=== PATIENT | male | born 2005 | race Caucasian/White ===

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

== ENCOUNTER 2023-12-07 01:00 | Inpatient (IN) | payer OTHER ==
[~2023-12-07 01:00] MED LIST: GLYCOPYRROLATE 0.2 MG/ML 2 ML VIAL ONE; HYDROmorphone (PF) 1 MG/ML ONE; KETOROLAC 15 MG/ML 1 ML VIAL ONE; LIDOCAINE 1% INJ 10MG/ML (20 ML MDV) ONE; MIDAZOLAM 2 MG/2 ML VIAL ONE; MORPHINE SULFATE 2 MG/ML SYRINGE ONE; MORPHINE SULFATE 4 MG/ML SYRINGE ONE; NEOSTIGMINE 1 MG/ML 10 ML VIAL ONE; PROPOFOL 10 MG/ML 20 ML VIAL IV ONE; ROCURONIUM 10 MG/ML (5 ML VIAL) IV ONE; SUCCINYLCHOLINE CHLORIDE 200 MG/10 ML VIAL IV ONE; fentaNYL (PF) 50 MCG/ML 2 ML AMP ONE
[2023-12-07] MEDS ORDERED: PIPERACILLIN-TAZOBACTAM 3.375 GM VIAL ONE ×3 (01:42→20:06)
[2023-12-07] MEDS ORDERED: HYDROmorphone 1 MG/ML 1 ML SYRINGE ONE (01:54)
[2023-12-07] MEDS ORDERED: ONDANSETRON 4 MG/2 ML VIAL ONE (08:00)
[2023-12-07] MEDS ORDERED: DEXAMETHASONE SOD PHOSPHATE 4 MG/ML 1 ML VIAL ONE (08:00)
[2023-12-07] MEDS ORDERED: HEPARIN SODIUM,PORCINE 5,000 UNIT/ML 1 ML VIAL ONE ×2 (09:03→20:06)
[2023-12-07] MEDS ORDERED: LACTATED RINGERS 1,000 ML BAG ONE (09:34)
[2023-12-07] MEDS ORDERED: LIDOCAINE 1%-EPI 1:100,000 20 ML VIAL ONE (09:34)
[2023-12-07] MEDS ORDERED: ACETAMINOPHEN TAB 325 MG TAB ONE (14:17)
[2023-12-07] MEDS ORDERED: HYDROcodone/APAP 5-325MG 1 EACH TAB ONE (20:57)
[2023-12-07] MEDS ORDERED: SODIUM CHLORIDE 0.9% 100 ML BAG IV ONE (23:59)
[2023-12-07] MEDS ORDERED: SODIUM CHLORIDE 0.9% 1,000 ML BAG ONE (23:59)
[2023-12-08] MEDS ORDERED: PIPERACILLIN-TAZOBACTAM 3.375 GM VIAL ONE ×2 (04:33→19:59)
[2023-12-08] MEDS ORDERED: HYDROcodone/APAP 5-325MG 1 EACH TAB ONE ×2 (08:53→16:14)
[2023-12-08] MEDS ORDERED: HEPARIN SODIUM,PORCINE 5,000 UNIT/ML 1 ML VIAL ONE ×2 (08:55→19:59)
[2023-12-08] MEDS ORDERED: ACETAMINOPHEN TAB 325 MG TAB ONE (19:59)
[2023-12-08] MEDS ORDERED: SODIUM CHLORIDE 0.9% 100 ML BAG IV ONE (23:59)
[2023-12-08] MEDS ORDERED: LEVOFLOXACIN 500MG-D5W PMX 500 MG/100 ML BAG IVPB ONE (23:59)
[2023-12-08] MEDS ORDERED: MELATONIN 3 MG TABLET ONE (23:59)
[2023-12-09] MEDS ORDERED: PIPERACILLIN-TAZOBACTAM 3.375 GM VIAL ONE (05:33)
[2023-12-09] MEDS ORDERED: HEPARIN SODIUM,PORCINE 5,000 UNIT/ML 1 ML VIAL ONE (08:13)
--- NOTE | 2024-01-06 15:37 | DS ---
DISCHARGE SUMMARY ADMITTING DIAGNOSIS: Appendicitis. DISCHARGE DIAGNOSIS: Appendicitis. COURSE IN THE HOSPITAL: This is a male, who was admitted through the emergency room with complaints of right lower quadrant pain. The patient was found to have acute appendicitis. The patient underwent laparoscopic appendectomy. His postoperative stay was unremarkable. The patient was discharged to home on 12/09/2023. He will follow up in the office in 1 week. MMANOOP / NICOLEN: [id number] /
--- NOTE | 2024-01-15 18:38 | CT ---
EXAM: CT Abdomen and Pelvis With Intravenous Contrast CLINICAL HISTORY: abdominal/epigastric pain. TECHNIQUE: Axial computed tomography images of the abdomen and pelvis with intravenous contrast. CTDI is 12.2 mGy and DLP is 623 mGy-cm. This CT exam was performed using one or more of the following dose reduction techniques: automated exposure control, adjustment of the mA and/or kV according to patient size, and/or use of iterative reconstruction technique. COMPARISON: No relevant prior studies available. FINDINGS: Lung bases:Unremarkable. No mass. No consolidation. ABDOMEN: Liver:Unremarkable. No mass. Gallbladder and bile ducts:Unremarkable. No calcified stones. No ductal dilation. Pancreas:Unremarkable. No mass. No ductal dilation. Spleen:Unremarkable. No splenomegaly. Adrenals:Unremarkable. No mass. Kidneys and ureters:Unremarkable. No solid mass. No hydronephrosis. Stomach and bowel:Unremarkable. No obstruction. No mucosal thickening. PELVIS: Appendix: Positive for appendicitis, consisting of a distended appendix measuring 14 mmwith moderate wall thickening. Moderate surrounding inflammation. No perforation or abscess. Bladder:Unremarkable. No mass. Reproductive:Unremarkable as visualized. ABDOMEN and PELVIS: Intraperitoneal space:Unremarkable. No free air. No significant fluid collection. Bones/joints:No acute fracture. No dislocation. Soft tissues:Unremarkable. Vasculature:Unremarkable. No abdominal aortic aneurysm. Lymph nodes:Unremarkable. No enlarged lymph nodes. IMPRESSION: Positive for appendicitis, consisting of a distended appendix measuring 14 mmwith moderate wall thickening. Moderate surrounding inflammation. No perforation or abscess. Radiologist: Marcellus Gonzalez MD Electronically Signed: 12/07/23 00:48 Study ready at 22:37 and initial results transmitted at 00:48 [facility]
--- NOTE | 2024-01-20 14:39 | OP ---
OPERATIVE REPORT DATE OF SERVICE : 12/07/2023 PREOPERATIVE DIAGNOSIS: Appendicitis. POSTOPERATIVE DIAGNOSIS: Appendicitis. GROCERY STORE CLERK: None. ANESTHESIA: General endotracheal anesthesia. DESCRIPTION OF PROCEDURE: The patient was placed on the operating table in the supine position. He received general anesthesia. His abdomen was prepped and draped in usual sterile fashion. The skin was incised at the umbilicus. Then, using a Estelle clamp, the fascia was grasped and then the Veress needle was positioned into the peritoneal cavity using a positive drop test. After adequate insufflation, a 5 mm trocar was placed into the peritoneal cavity and then the laparoscope was placed in the peritoneal cavity. There was inflammatory changes seen in the right lower quadrant. A 5 mm suprapubic trocar was placed and a 10 mm midline epigastric trocar was placed. The appendix was then dissected. The mesoappendix and then dissected using the Harmonic scissors. Then, the Endoloop was placed around the base of the appendix. The appendectomy was then performed by dividing the appendix with Harmonic scissors. The appendix was then placed into an EndoCatch and brought out through the 10 mm trocar site. The abdomen was irrigated. There was no bleeding seen. The scope was withdrawn. The skin was closed with interrupted 3-0 Monocryl suture. Dermabond dressing applied. The patient tolerated the procedure well. He was sent to recovery room in stable condition. MMODL / IJN: [id number] /
== END 2023-12-09 14:33 | disposition home or self-care (01) | DRG 234 ==
LOC: 6NMEDSUR 01:00
PROVIDERS: ADMIT Surgery; ATTEND Surgery
PROC: 0DTJ4ZZ Resection of Appendix, Percutaneous Endoscopic Approach (ICD-10-PCS; principal; 2023-12-06 09:50)
DX: K35.80 Unspecified acute appendicitis (principal); Z87.891 Personal history of nicotine dependence
CPT/HCPCS: 74177; 87040; 88304; 96374; 96375; 99285

== ENCOUNTER 2024-06-23 20:39 | Emergency (ER) | payer OTHER ==
--- NOTE | 2024-06-23 21:23 | ED ---
Extremity Problem HPI - General Chief complaint: Extremity Problem,Nontraumatic Stated complaint: L Arm Pain Time Seen by Provider: 06/23/24 20:54 Source: patient, RN notes reviewed Mode of arrival: ambulatory Limitations: no limitations - History of Present Illness Initial comments: This is a 18-year-old male presenting with left arm pain and swelling following placement donation several hours ago. Patient states this was his second time donating plasma when he suffered a syncopal episode in the middle of the process. States he has been having left upper arm swelling, pain and minor forearm paresthesia since that time with no ongoing dizziness/lightheadedness. Denies fever, chills, chest pain, dyspnea, extremity weakness, external bleeding.. Denies cardiac history, syncopal episodes with needle exposure, use of blood thinners. MD Complaint: extremity pain, extremity swelling Onset/Timin -: hour(s) Location: left, upper extremity History of Same: No Consistency: constant Improves with: immobilization, elevation Worsens with: palpation Associated Symptoms: denies other symptoms - Related Data Home Medications Medication Instructions Recorded Confirmed Minocycline [Minocin] 50 mg PO DAILY 07/05/21 07/05/21 Multivitamins, Thera [Multivitamin 1 tab PO DAILY 07/05/21 07/05/21 (formulary)] Allergies Allergy/AdvReac Type Severity Reaction Status Date / Time No Known Allergies Allergy Verified 06/23/24 20:43 Review of Systems ROS Statement: Those systems with pertinent positive or pertinent negative responses have been documented in the HPI. ROS Other: All systems not noted in ROS Statement are negative. Past Medical History Past Medical History: No Reported History Additional Past Medical History / Comment(s): adhd and a mood disorder per mom, sleep disorder History of Any Multi-Drug Resistant Organisms: None Reported Past Surgical History: No Surgical Hx Reported Past Psychological History: ADD/ADHD, Anxiety Smoking Status: Vaper Past Alcohol Use History: None Reported Past Drug Use History: Marijuana General Exam Limitations: no limitations General appearance: alert, in no apparent distress Head exam: Present: atraumatic, normocephalic, normal inspection Eye exam: Present: normal appearance, PERRL, EOMI. Absent: scleral icterus, conjunctival injection, periorbital swelling ENT exam: Present: normal exam, mucous membranes moist Neck exam: Present: normal inspection. Absent: tenderness, meningismus, lymphadenopathy Respiratory exam: Present: normal lung sounds bilaterally. Absent: respiratory distress, wheezes, rales, rhonchi, stridor Cardiovascular Exam: Present: regular rate, normal rhythm, normal heart sounds. Absent: systolic murmur, diastolic murmur, rubs, gallop, clicks GI/Abdominal exam: Present: soft, normal bowel sounds. Absent: distended, tenderness, guarding, rebound, rigid Extremities exam: Present: full ROM, tenderness (Positive left distal bicep edema and tenderness without ecchymosis, erythema - possible images hematoma), normal capillary refill, other (Distal left upper extremity neurovascular and motor function intact. Radial pulse +2, capillary refill less than 2 seconds). Absent: pedal edema, joint swelling, calf tenderness Back exam: Present: normal inspection Neurological exam: Present: alert, oriented X3, CN II-XII intact Psychiatric exam: Present: normal affect, normal mood Skin exam: Present: warm, dry, intact, normal color. Absent: rash Course Vital Signs 06/23/24 20:41 Temperature 97.7 F Pulse Rate 78 Respiratory 18 Rate Blood Pressure 124/82 O2 Sat by Pulse 100 Oximetry Medical Decision Making - Medical Decision Making Was pt. sent in by a medical professional or institution (, PA, TAPE LIBRARIAN, urgent care, hospital, or alf...) When possible be specific @ -[No] Did you speak to anyone other than the patient for history (EMS, parent, family, police, friend...)? What history was obtained from this source @ -[No] Did you review nursing and triage notes (agree or disagree)? Why? @ -[I reviewed and agree with nursing and triage notes] Were old charts reviewed (outside hosp., previous admission, EMS record, old EKG, old radiological studies, urgent care reports/EKG's, alf records)? Report findings @ -[No old charts were reviewed] Differential Diagnosis (chest pain, altered mental status, abdominal pain women, abdominal pain men, vaginal bleeding, weakness, fever, dyspnea, syncope, headache, dizziness, GI bleed, back pain, seizure, CVA, palpatations, mental health, musculoskeletal)? @ -Differential Musculoskeletal Muscular strain, contusion, ligament sprain, fracture, arthritis, septic arthritis, bursitis, cellulitis, muscle spasm, nerve compression, DVT, arterial occlusion, herpes zoster, electrolyte abnormality, tumor.... This is not meant to be in all inclusive list differential Syncope: Valvular disease, hypertrophic cardiomyopathy, pulmonary embolism, tamponade, tachycardia, bradycardia, MD, hypovolemia, hemorrhage, dissection, anemia, intr acranial hemorrhage, seizure, hypoglycemia, carbon monoxide poisoning, this is not meant to be an all-inclusive list. EKG interpreted by me (3pts min.). @ -Sinus rhythm with sinus arrhythmia and possible right ventricular conduction delay. No ST deviation or T wave inversion. Ventricular rate 66 bpm, RONDA 175 ms, QRS duration 94 ms, QTc 392 ms. X-rays interpreted by me (1pt min.). @ -[None done] CT interpreted by me (1pt min.). @ -[None done] U/S interpreted by me (1pt. min.). @ -[None done] What testing was considered but not performed or refused? (CT, X-rays, U/S, labs)? Why? @ -[None] What meds were considered but not given or refused? Why? @ -[None] Did you discuss the management of the patient with other professionals (professionals i.e. , PA, TAPE LIBRARIAN, lab, RT, psych nurse, social media marketing specialist, software development specialist, teacher, adult parole officer, patient case manager)? Give summary @ -[No] Was smoking cessation discussed for >3mins.? @ -[No] Was critical care preformed (if so, how long)? @ -[No] Were there social determinants of health that impacted care today? How? (Homelessness, low income, unemployed, alcoholism, drug addiction, transportation, low edu. Level, literacy, decrease access to med. care, fci, r ehab)? @ -[No] Was there de-escalation of care discussed even if they declined (Discuss DNR or withdrawal of care, Hospice)? DNR status @ -[No] What co-morbidities impacted this encounter? (DM, HTN, Smoking, COPD, CAD, Cancer, CVA, ARF, Chemo, Hep., AIDS, mental health diagnosis, sleep apnea, morbid obesity)? @ -[None] Was patient admitted / discharged? Hospital course, mention meds given and rout e, prescriptions, significant lab abnormalities, going to OR and other pertinent info. @ -[hospital course] Undiagnosed new problem with uncertain prognosis? @ -[No] Drug Therapy requiring intensive monitoring for toxicity (Heparin, Nitro, Insulin, Cardizem)? @ -[No] Were any procedures done? @ -[No] Diagnosis/symptom? @ -[default] Acute, or Chronic, or Acute on Chronic? @ -Acute Uncomplicated (without systemic symptoms) or Complicated (systemic symptoms)? @ -Complicated Side effects of treatment? @ -[No] Exacerbation, Progression, or Severe Exacerbation? @ -[No] Poses a threat to life or bodily function? How? (Chest pain, [place], [place], pneumonia, PE, COPD, DKA, ARF, appy, cholecystitis, CVA, Diverticulitis, Homicidal, Suicidal, threat to staff... and all critical care pts) @ -[No] - Lab Data Result diagrams: 06/23/24 21:26 06/23/24 23:30 Lab Results 06/23/24 06/23/24 Range/Units 21:26 23:30 WBC 8.2 (4.0-11.0) k/uL RBC 5.22 (4.30-5.90) m/uL Hgb 15.1 (13.0-17.5) gm/dL Hct 45.0 (39.0-53.0) % MCV 86.3 (80.0-100.0) fL MCH 29.0 (25.0-35.0) pg MCHC 33.6 (31.0-37.0) g/dL RDW 13.0 (11.5-15.5) % Plt Count 229 (150-450) k/uL MPV 8.8 Neutrophils % 75 % Lymphocytes % 19 % Monocytes % 4 % Eosinophils % 2 % Basophils % 0 % Neutrophils # 6.1 (1.3-7.7) k/uL Lymphocytes # 1.6 (1.0-4.8) k/uL Monocytes # 0.3 (0-1.0) k/uL Eosinophils # 0.1 (0-0.7) k/uL Basophils # 0.0 (0-0.2) k/uL Sodium 137 (137-145) mmol/L Potassium 4.0 (3.5-5.1) mmol/L Chloride 103 (98-107) mmol/L Carbon Dioxide 27 (22-30) mmol/L Anion Gap 7 mmol/L BUN 11 (9-20) mg/dL Creatinine 0.69 (0.66-1.25) mg/dL Est GFR (CKD-EPI)AfAm >90 (>60 ml/min/1.73 sqM) Est GFR (CKD-EPI)NonAf >90 (>60 ml/min/1.73 sqM) Glucose 102 H (74-99) mg/dL Calcium 8.5 (8.4-10.2) mg/dL Total Bilirubin 0.4 (0.2-1.3) mg/dL AST 18 (17-59) U/L ALT 13 (4-49) U/L Alkaline Phosphatase 47 (38-126) U/L Total Protein 6.1 L (6.3-8.2) g/dL Albumin 3.7 (3.5-5.0) g/dL Disposition Clinical Impression: Syncope, Hematoma of left upper extremity Disposition: HOME SELF-CARE Condition: Good Instructions (If sedation given, give patient instructions): Syncope (ED), Hematoma (ED) Is patient prescribed a controlled substance at d/c from ED?: No Referrals: None,Stated [Primary Care Provider] - 1-2 days Faustino Sun DO [STAFF PHYSICIAN] - 1-2 days Ayla Nuno PAC [REFERRING] - 1-2 days Time of Disposition: 23:59
[2024-06-23 22:01] LABS: Basophils % (A) 0 %; Eosinophils # (A) 0.1 k/uL (0-0.7); Eosinophils % (A) 2 %; HGB 15.1 gm/dL (13.0-17.5); Lymphocytes # (A) 1.6 k/uL (1.0-4.8); Lymphocytes % (A) 19 %; MCHC 33.6 g/dL (31.0-37.0); MCV 86.3 fL (80.0-100.0); Mean Platelet Volume 8.8; Monocytes # (A) 0.3 k/uL (0-1.0); Monocytes % (A) 4 %; Neutrophils # (A) 6.1 k/uL (1.3-7.7); Neutrophils % (A) 75 %; Platelet Count 229 k/uL (150-450); RBC 5.22 m/uL (4.30-5.90); WBC 8.2 k/uL (4.0-11.0)
--- NOTE | 2024-06-23 23:25 | US ---
EXAM: US Duplex Left Upper Extremity Veins CLINICAL HISTORY: ITS.REASON US Reason: Left UE bicep edema following plasma donation TECHNIQUE: Real-time duplex ultrasound scan of the left upper extremity veins integrating B-mode two-dimensional vascular structure, Doppler spectral analysis, color flow Doppler imaging and compression. COMPARISON: No relevant prior studies available. FINDINGS: Deep veins: Unremarkable. No DVT in the internal jugular, subclavian, axillary, brachial, radial, or ulnar veins. The veins demonstrate normal color flow, are normally compressible, with normal phasic flow and/or augmentation response. Superficial veins: Unremarkable. No thrombus in the visualized basilic and cephalic veins. Soft tissues: No acute findings. IMPRESSION: No evidence of acute DVT.
[2024-06-23 23:54] LABS: ALT 13 U/L (4-49); AST 18 U/L (17-59); African American GFR (CKD) >90 (>60 ml/min/1.73 sqM); Albumin 3.7 g/dL (3.5-5.0); Alkaline Phosphatase 47 U/L (38-126); Anion Gap 7 mmol/L; Blood Urea Nitrogen 11 mg/dL (9-20); Calcium 8.5 mg/dL (8.4-10.2); Carbon Dioxide 27 mmol/L (22-30); Chloride 103 mmol/L (98-107); Glucose 102 mg/dL (74-99); Non-African American GFR(CKD) >90 (>60 ml/min/1.73 sqM); Sodium 137 mmol/L (137-145); Total Bilirubin 0.4 mg/dL (0.2-1.3); Total Protein 6.1 g/dL (6.3-8.2)
[2024-06-24 00:03] VITALS: BP 111/62; PULSE 63; RESP 17; TEMP 98
== END 2024-06-24 00:15 | disposition home or self-care (01) ==
LOC: EC 20:39
DX: S40.022A Contusion of left upper arm, initial encounter (principal); R55 Syncope and collapse; F17.290 Nicotine dependence, other tobacco product, uncomplicated; Y84.8 Other medical procedures as the cause of abnormal reaction of the patient, or of later complication, without mention of misadventure at the time of the procedure
CPT/HCPCS: 36415; 80053; 85025; 93005; 99284

== ENCOUNTER 2024-10-02 18:12 | Inpatient (IN) | payer OTHER ==
[2024-10-02 18:17] LABS: Glucose,Whole Blood 97 mg/dL (70-110)
--- NOTE | 2024-10-02 18:18 | ED ---
Trauma HPI - General Stated Complaint: SI Time Seen by Provider: 10/02/24 18:14 Source: RN notes reviewed, old records reviewed Limitations: no limitations - History of Present Illness Initial Comments: This is a 19 male to the ER for evaluation of left upper extremity it is self- inflicted radial artery injury. Patient does have tourniquet placed currently wound is bandaged with significant bleeding at the site for both PD who placed initial tourniquet and EMS to place second tourniquet secondary to significant and persistent bleeding. Patient initially little lightheaded but does admit to both marijuana and alcohol use today and this was a suicide attempt MD Complaint: injury (self inflicted knife injury) Location - Extremities: Left: Forearm, Wrist Severity scale (1-10): 10 Consistency: constant Context: Machine or Tool Related Injury, stab wound, alcohol ingestion, drug ingestion Associated Symptoms: confusion, shortness of breath, weakness Treatments Prior to Arrival: dressings, tourniquet - Related Data Previous Rx's Medication Instructions Recorded Acetaminophen Tab [Tylenol] 500 mg PO Q6HR PRN tab 10/04/24 Folic Acid 1 mg PO DAILY@1200 tab 10/04/24 Multivitamins, Thera [Multivitamin 1 each PO DAILY@1200 tab 10/04/24 (formulary)] OLANZapine [ZyPREXA] 5 mg PO BID PRN tab 10/04/24 Pantoprazole [Protonix] 40 mg PO AC-BRKFST tab 10/04/24 Thiamine [Vitamin B-1] 100 mg PO BID-W/MEALS tab 10/04/24 Allergies Allergy/AdvReac Type Severity Reaction Status Date / Time No Known Allergies Allergy Verified 10/02/24 18:33 Review of Systems ROS Statement: Those systems with pertinent positive or pertinent negative responses have been documented in the HPI. ROS Other: All systems not noted in ROS Statement are negative. Past Medical History Past Medical History: No Reported History Additional Past Medical History / Comment(s): adhd and a mood disorder per mom, sleep disorder History of Any Multi-Drug Resistant Organisms: None Reported Past Surgical History: No Surgical Hx Reported Past Psychological History: ADD/ADHD, Anxiety Smoking Status: Vaper Past Alcohol Use History: None Reported Past Drug Use History: Marijuana - Past Family History Mother Additional Family Medical History / Comment(s): Pt states mom of blood clots Father History Unknown: Yes General Exam - General Exam Comments Initial Comments: GCS 15 Patient does have 2 tourniquets left upper extremity General appearance: alert, appears intoxicated, anxious Head exam: Present: atraumatic, normocephalic, normal inspection Eye exam: Present: normal appearance, PERRL, EOMI. Absent: scleral icterus, conjunctival injection, periorbital swelling ENT exam: Present: normal exam, mucous membranes moist Neck exam: Present: normal inspection. Absent: tenderness, meningismus, lymphadenopathy Respiratory exam: Present: normal lung sounds bilaterally. Absent: respiratory distress, wheezes, rales, rhonchi, stridor Cardiovascular Exam: Present: regular rate, normal rhythm, normal heart sounds. Absent: systolic murmur, diastolic murmur, rubs, gallop, clicks GI/Abdominal exam: Present: soft, normal bowel sounds. Absent: distended, tenderness, guarding, rebound, rigid Extremities exam: Present: normal inspection, full ROM, normal capillary refill. Absent: tenderness, pedal edema, joint swelling, calf tenderness Back exam: Present: normal inspection Neurological exam: Present: alert, oriented X3, CN II-XII intact Psychiatric exam: Present: normal affect, normal mood Skin exam: Present: warm, dry, intact, normal color. Absent: rash Course Vital Signs 10/02/24 10/02/24 18:14 19:15 Temperature 98.5 F Pulse Rate 111 H 72 Respiratory 24 18 Rate Blood Pressure 121/93 153/110 O2 Sat by Pulse 98 98 Oximetry - Reevaluation(s) Reevaluation #1: 10/02/24 18:32 Medical records reviewed Level 2 trauma paged prior to patient arrival Reevaluation #2: 10/02/24 18:32 Patient symptoms improved here in the ER 10/02/24 18:35 Initial tourniquet application is 1804 Reevaluation #3: 10/02/24 18:32 Patient informed of results and questions answered Reevaluation #4: Was pt. sent in by a medical professional or institution (, PA, MEAT PACKER, urgent care, hospital, or senior living...) When possible be specific @ -no Did you speak to anyone other than the patient for history (EMS, parent, family, police, friend...)? What history was obtained from this source @ -no Did you review nursing and triage notes (agree or disagree)? Why? @ -agree Are old charts reviewed (outside hosp., previous admission, EMS record, old EKG, old radiological studies, urgent care reports/EKG's, senior living records)? Report findings @ -yes Differential Diagnosis (chest pain, altered mental status, abdominal pain women, abdominal pain men, vaginal bleeding, weakness, fever, dyspnea, syncope, headache, dizziness, GI bleed, back pain, seizure, CVA, palpatations, mental health, musculoskeletal)? @ -prior EKG interpreted by me (3pts min.). @ -yes X-rays interpreted by me (1pt min.). @ -no CT interpreted by me (1pt min.). @ -no U/S interpreted by me (1pt. min.). @ -no What testing was considered but not performed or refused? (CT, X-rays, U/S, labs)? Why? @ -none What meds were considered but not given or refused? Why? @ -none Did you discuss the management of the patient with other professionals (professionals i.e. , PA, MEAT PACKER, lab, RT, psych nurse, social media community manager, instrument technologist, te acher, chief contract officer, senior case manager)? Give summary @ -no Was smoking cessation discussed for >3mins.? @ -no Was critical care preformed (if so, how long)? @ -yes31 Were there social determinants of health that impacted care today? How? (Homelessness, low income, unemployed, alcoholism, drug addiction, transportation, low edu. Level, literacy, decrease access to med. care, prison, rehab)? @ -none Was there de-escalation of care discussed even if they declined (Discuss DNR or withdrawal of care, Hospice)? DNR status @ -no What co-morbidities impacted this encounter? (DM, HTN, Smoking, COPD, CAD, Cancer, CVA, ARF, Chemo, Hep., AIDS, mental health diagnosis, sleep apnea, morbid obesity)? @ -none Was patient admitted / discharged? Hospital course, mention meds given and route, prescriptions, significant lab abnormalities, going to OR and other pertinent info. @ - 19 male to the ER for evaluation of self-inflicted left radial artery laceration with significant exsanguination. Patient's symptoms are severe, tourniquet is placed patient has 2 tourniquets left arm currently placed vascu lar surgery is consulted who will take patient to the operating room Admitted Undiagnosed new problem with uncertain prognosis? @ -no Drug Therapy requiring intensive monitoring for toxicity (Heparin, Nitro, Insulin, Cardizem)? @ -no Were any procedures done? @ -no Diagnosis/symptom? @ -Radial artery laceration, suicide attempt Acute, or Chronic, or Acute on Chronic? @ -Acute Uncomplicated (without systemic symptoms) or Complicated (systemic symptoms)? @ -Complicated Side effects of treatment? @ -no Exacerbation, Progression, or Severe Exacerbation? @ -exacerbation Poses a threat to life or bodily function? How? (Chest pain, [place], [place], pneumonia, PE, COPD, DKA, ARF, appy, cholecystitis, CVA, Diverticulitis, Homicidal, Suicidal, threat to staff... and all critical care pts) @ -yes significant suicide attempt with arterial injury - Consultations Consultation #1: Spoke with trauma surgery aware of the patient in the emergency department Consultation #2: Spoke with Dr. Roldan vascular surgery will take patient to the operating room Medical Decision Making - Medical Decision Making 19 male to the ER for evaluation of self-inflicted left radial artery laceration with significant exsanguination. Patient's symptoms are severe, tourniquet is placed patient has 2 tourniquets left arm currently placed vascular surgery is consulted who will take patient to the operating room - Lab Data Result diagrams: 10/04/24 04:21 10/04/24 04:21 Lab Results 10/02/24 10/02/24 10/02/24 Range/Units 18:10 18:15 18:15 WBC 8.26 (4.50-10.00) 10*3/uL RBC 5.25 (4.40-5.60) 10*6/uL Hgb 15.7 (13.0-17.0) g/dL Hct 45.4 (39.6-50.0) % MCV 86.5 (80.0-97.0) fL MCH 29.9 (27.0-32.0) pg MCHC 34.6 (32.0-37.0) g/dL Plt Count 298 (140-440) 10*3/uL MPV 9.7 (9.5-12.2) fL Immature Gran % (Auto) 0.6 % Neutrophils % 61.5 % Lymphocytes % 25.7 % Monocytes % 8.8 % Eosinophils % 2.8 % Basophils % 0.6 % Immature Gran # 0.05 H (0.00-0.04) 10*3/uL Neutrophils # 5.08 (1.80-7.70) 10*3/uL Lymphocytes # 2.12 (0.90-5.00) 10*3/uL Monocytes # 0.73 (0.20-1.00) 10*3/uL Eosinophils # 0.23 (0.04-0.35) 10*3/uL Basophils # 0.05 (0.00-0.10) 10*3/uL PT 10.8 (10.0-12.5) sec INR 1.0 (<1.2) APTT 22.3 (22.0-30.0) sec Sodium (137-145) mmol/L Potassium (3.5-5.1) mmol/L Chloride (98-107) mmol/L Carbon Dioxide (22-30) mmol/L Anion Gap mmol/L BUN (9-20) mg/dL Creatinine (0.66-1.25) mg/dL Est GFR (CKD-EPI)AfAm (>60 ml/min/1.73 sqM) Est GFR (CKD-EPI)NonAf (>60 ml/min/1.73 sqM) Glucose (74-99) mg/dL POC Glucose (mg/dL) (70-110) mg/dL POC Glu [employer] Architect ID Calcium (8.4-10.2) mg/dL Total Bilirubin (0.2-1.3) mg/dL AST (17-59) U/L ALT (4-49) U/L Alkaline Phosphatase (38-126) U/L Troponin I (0.000-0.034) ng/mL Total Protein (6.3-8.2) g/dL Albumin (3.5-5.0) g/dL Serum Alcohol mg/dL Blood Type Blood Type Confirm B Positive Blood Type Recheck Bld Type Recheck Status Antibody Screen Crossmatch Spec Expiration Date 10/02/24 10/02/24 10/02/24 Range/Units 18:15 18:15 18:15 WBC (4.50-10.00) 10*3/uL RBC (4.40-5.60) 10*6/uL Hgb (13.0-17.0) g/dL Hct (39.6-50.0) % MCV (80.0-97.0) fL MCH (27.0-32.0) pg MCHC (32.0-37.0) g/dL Plt Count (140-440) 10*3/uL MPV (9.5-12.2) fL Immature Gran % (Auto) % Neutrophils % % Lymphocytes % % Monocytes % % Eosinophils % % Basophils % % Immature Gran # (0.00-0.04) 10*3/uL Neutrophils # (1.80-7.70) 10*3/uL Lymphocytes # (0.90-5.00) 10*3/uL Monocytes # (0.20-1.00) 10*3/uL Eosinophils # (0.04-0.35) 10*3/uL Basophils # (0.00-0.10) 10*3/uL PT (10.0-12.5) sec INR (<1.2) APTT (22.0-30.0) sec Sodium 143 (137-145) mmol/L Potassium 4.2 (3.5-5.1) mmol/L Chloride 103 (98-107) mmol/L Carbon Dioxide 24 (22-30) mmol/L Anion Gap 16 mmol/L BUN 11 (9-20) mg/dL Creatinine 0.81 (0.66-1.25) mg/dL Est GFR (CKD-EPI)AfAm >90 (>60 ml/min/1.73 sqM) Est GFR (CKD-EPI)NonAf >90 (>60 ml/min/1.73 sqM) Glucose 97 (74-99) mg/dL POC Glucose (mg/dL) (70-110) mg/dL POC Glu [employer] Architect ID Calcium 9.2 (8.4-10.2) mg/dL Total Bilirubin 0.7 (0.2-1.3) mg/dL AST 28 (17-59) U/L ALT 18 (4-49) U/L Alkaline Phosphatase 67 (38-126) U/L Troponin I <0.012 (0.000-0.034) ng/mL Total Protein 8.2 (6.3-8.2) g/dL Albumin 5.0 (3.5-5.0) g/dL Serum Alcohol 204 H* mg/dL Blood Type B Positive Blood Type Confirm Blood Type Recheck No Previous Record Bld Type Recheck Status CABO Indicated Antibody Screen NEGATIVE Crossmatch See Detail Spec Expiration Date 10/05/2024 - 231410/02/24 Range/Units 18:16 WBC (4.50-10.00) 10*3/uL RBC (4.40-5.60) 10*6/uL Hgb (13.0-17.0) g/dL Hct (39.6-50.0) % MCV (80.0-97.0) fL MCH (27.0-32.0) pg MCHC (32.0-37.0) g/dL Plt Count (140-440) 10*3/uL MPV (9.5-12.2) fL Immature Gran % (Auto) % Neutrophils % % Lymphocytes % % Monocytes % % Eosinophils % % Basophils % % Immature Gran # (0.00-0.04) 10*3/uL Neutrophils # (1.80-7.70) 10*3/uL Lymphocytes # (0.90-5.00) 10*3/uL Monocytes # (0.20-1.00) 10*3/uL Eosinophils # (0.04-0.35) 10*3/uL Basophils # (0.00-0.10) 10*3/uL PT (10.0-12.5) sec INR (<1.2) APTT (22.0-30.0) sec Sodium (137-145) mmol/L Potassium (3.5-5.1) mmol/L Chloride (98-107) mmol/L Carbon Dioxide (22-30) mmol/L Anion Gap mmol/L BUN (9-20) mg/dL Creatinine (0.66-1.25) mg/dL Est GFR (CKD-EPI)AfAm (>60 ml/min/1.73 sqM) Est GFR (CKD-EPI)NonAf (>60 ml/min/1.73 sqM) Glucose (74-99) mg/dL POC Glucose (mg/dL) 97 (70-110) mg/dL POC Glu [employer] Architect ID Deborah Morrow Calcium (8.4-10.2) mg/dL Total Bilirubin (0.2-1.3) mg/dL AST (17-59) U/L ALT (4-49) U/L Alkaline Phosphatase (38-126) U/L Troponin I (0.000-0.034) ng/mL Total Protein (6.3-8.2) g/dL Albumin (3.5-5.0) g/dL Serum Alcohol mg/dL Blood Type Blood Type Confirm Blood Type Recheck Bld Type Recheck Status Antibody Screen Crossmatch Spec Expiration Date - EKG Data -: EKG Interpreted by Me (EKG is sinus tachycardia 103 GA 140 QRS 96 QTc 377) Critical Care Time Critical Care Time: Yes Total Critical Care Time: 32 Disposition Clinical Impression: Laceration of left radial artery, Suicide attempt Disposition: ADMITTED IP TO THIS HOSP Condition: Critical Is patient prescribed a controlled substance at d/c from ED?: No Time of Disposition: 19:00
[2024-10-02] MEDS: ONDANSETRON 4 MG/2 ML VIAL IVP STA (18:23)
[2024-10-02] MEDS: SODIUM CHLORIDE 0.9% 1,000 ML IV STA (18:26)
[2024-10-02] MEDS: LORazepam 1 MG/0.5 ML VIAL IV STA (18:26)
[2024-10-02] MEDS: HYDROmorphone 1 MG/ML 1 ML SYRINGE IVP STA (18:26)
[2024-10-02 18:30] LABS: Basophils # (A) 0.05 10*3/uL (0.00-0.10); Basophils % (A) 0.6 %; Eosinophils # (A) 0.23 10*3/uL (0.04-0.35); Eosinophils % (A) 2.8 %; HCT 45.4 % (39.6-50.0); HGB 15.7 g/dL (13.0-17.0); Lymphocytes # (A) 2.12 10*3/uL (0.90-5.00); Lymphocytes % (A) 25.7 %; MCH 29.9 pg (27.0-32.0); MCHC 34.6 g/dL (32.0-37.0); MCV 86.5 fL (80.0-97.0); Mean Platelet Volume 9.7 fL (9.5-12.2); Monocytes # (A) 0.73 10*3/uL (0.20-1.00); Monocytes % (A) 8.8 %; Neutrophils # (A) 5.08 10*3/uL (1.80-7.70); Neutrophils % (A) 61.5 %; Platelet Count 298 10*3/uL (140-440); RBC 5.25 10*6/uL (4.40-5.60); RDW 12.8 % (11.5-14.5); WBC 8.26 10*3/uL (4.50-10.00)
[2024-10-02] MEDS: DIPH,PERTUS(ACELL)TETVAC-LF 0.5 ML VIAL IM ONE (18:32)
[2024-10-02] MEDS: ceFAZolin 2 GM in DEXTROSE 5% IN WATER 50 ML IVPB STA (18:37)
[2024-10-02 18:44] LABS: ALT 18 U/L (4-49); AST 28 U/L (17-59); African American GFR (CKD) >90 (>60 ml/min/1.73 sqM); Alkaline Phosphatase 67 U/L (38-126); Anion Gap 16 mmol/L; Blood Urea Nitrogen 11 mg/dL (9-20); Calcium 9.2 mg/dL (8.4-10.2); Carbon Dioxide 24 mmol/L (22-30); Chloride 103 mmol/L (98-107); Glucose 97 mg/dL (74-99); Non-African American GFR(CKD) >90 (>60 ml/min/1.73 sqM); Potassium 4.2 mmol/L (3.5-5.1); Sodium 143 mmol/L (137-145); Total Bilirubin 0.7 mg/dL (0.2-1.3); Total Protein 8.2 g/dL (6.3-8.2)
[2024-10-02 18:53] LABS: Alcohol 204 mg/dL
[2024-10-02 18:57] LABS: Partial Thromboplastin Time 22.3 sec (22.0-30.0); Prothrombin Time 10.8 sec (10.0-12.5)
[2024-10-02] MEDS ORDERED: NALOXONE 0.4 MG/ML 1 ML VIAL IV PRN (19:24)
--- NOTE | 2024-10-02 19:29 | P.GSCN ---
History of Present Illness Consult date: 10/02/24 History of present illness: Patient is a 19-year-old male who came into the ER via EMS for self-inflicted left upper extremity laceration with bleeding. Per the ED physician on arrival patient was alert and oriented, he had the field tourniquet in place. The ER physician took it down and noted pulsatile bleeding at which time a vascular phone call was obtained. He has been cleared reportedly via the trauma service/ER with no other obvious injuries. The tourniquet was replaced. At the time approximately 1 hour ago. Since then about 10 minutes ago the ER physician states they did remove tourniquet to evaluate the hand which did improve flow and did have some bleeding through the dressing therefore this time it was reapplied. In discussion with the patient, he seems to be potentially altered in mental status due to medication effects. Patient states he cannot really do anything in regards to moving his hand. Reportedly utilized marijuana and alcohol today and stated this was a suicide attempt to ER physicians. Past Medical History Past Medical History: No Reported History Additional Past Medical History / Comment(s): adhd and a mood disorder per mom, sleep disorder History of Any Multi-Drug Resistant Organisms: None Reported Past Surgical History: No Surgical Hx Reported Past Psychological History: ADD/ADHD, Anxiety Smoking Status: Vaper Past Alcohol Use History: None Reported Past Drug Use History: Marijuana Medications and Allergies Home Medications Medication Instructions Recorded Confirmed Type No Known Home Medications 10/02/24 10/02/24 History Allergies Allergy/AdvReac Type Severity Reaction Status Date / Time No Known Allergies Allergy Verified 10/02/24 18:33 Surgical - Exam Vital Signs Temp Pulse Resp BP Pulse Ox 98.5 F 111 H 24 121/93 98 10/02/24 18:14 10/02/24 18:14 10/02/24 18:14 10/02/24 18:14 10/02/24 18:14 Constitutional: No acute distress, able to answer simple questions Eyes: Anicteric sclerae, moist conjunctiva, no lid-lag HENMT: Normocephalic / Atraumatic Oropharynx clear Neck: Supple, full range of motion, nontender, no masses Lungs: Normal respiratory effort, no accessory muscle use Cardiovascular: Heart regular on monitor Abdominal: Soft, nondistended Skin: Normal temperature, tone, texture, turgor. No rashes Extremities: No digital cyanosis No clubbing. Vascular: Left upper extremity with forearm tourniquet in place as well as pressure dressing at the wrist. Dried blood through the extremity. Left hand is cyanotic in appearance, patient currently unable to present motor function likely due to tourniquet presentation at this time. Per ER physician patient recently evaluated with motor or sensory intact on most recent evaluation when tourniquet brought down Psychiatric: AOx3 Neuro: Cranial nerves II-XII grossly intact Results - Labs 10/02/24 18:15 10/02/24 18:15 Abnormal Lab Results - Last 24 Hours (Table) 10/02/24 10/02/24 10/02/24 Range/Units 18:15 18:15 18:15 Immature Gran # 0.05 H (0.00-0.04) 10*3/uL Serum Alcohol 204 H* mg/dL Crossmatch See Detail Diabetes panel 10/02/24 Range/Units 18:15 Sodium 143 (137-145) mmol/L Potassium 4.2 (3.5-5.1) mmol/L Chloride 103 (98-107) mmol/L Carbon Dioxide 24 (22-30) mmol/L BUN 11 (9-20) mg/dL Creatinine 0.81 (0.66-1.25) mg/dL Glucose 97 (74-99) mg/dL Calcium 9.2 (8.4-10.2) mg/dL AST 28 (17-59) U/L ALT 18 (4-49) U/L Alkaline Phosphatase 67 (38-126) U/L Total Protein 8.2 (6.3-8.2) g/dL Albumin 5.0 (3.5-5.0) g/dL Calcium panel 10/02/24 Range/Units 18:15 Calcium 9.2 (8.4-10.2) mg/dL Albumin 5.0 (3.5-5.0) g/dL Pituitary panel 10/02/24 Range/Units 18:15 Sodium 143 (137-145) mmol/L Potassium 4.2 (3.5-5.1) mmol/L Chloride 103 (98-107) mmol/L Carbon Dioxide 24 (22-30) mmol/L BUN 11 (9-20) mg/dL Creatinine 0.81 (0.66-1.25) mg/dL Glucose 97 (74-99) mg/dL Calcium 9.2 (8.4-10.2) mg/dL Adrenal panel 10/02/24 Range/Units 18:15 Sodium 143 (137-145) mmol/L Potassium 4.2 (3.5-5.1) mmol/L Chloride 103 (98-107) mmol/L Carbon Dioxide 24 (22-30) mmol/L BUN 11 (9-20) mg/dL Creatinine 0.81 (0.66-1.25) mg/dL Glucose 97 (74-99) mg/dL Calcium 9.2 (8.4-10.2) mg/dL Total Bilirubin 0.7 (0.2-1.3) mg/dL AST 28 (17-59) U/L ALT 18 (4-49) U/L Alkaline Phosphatase 67 (38-126) U/L Total Protein 8.2 (6.3-8.2) g/dL Albumin 5.0 (3.5-5.0) g/dL Assessment and Plan Assessment: Self-inflicted laceration with hemorrhage left wrist Plan: At this point we will plan to go forward with operative intervention. Discussed with the patient at this time of attempts to repair versus ligate for control of hemorrhage. Discussed with him that potentially given evaluation under exploration with anesthesia, there may be further issues such as nerve damage but will be remained to be seen until evaluation. Did discuss risks including but not limited to continued nerve damage, inability to repair, ischemia to the hand. He seemingly understands and is in agreement with operative repair. A consent form was signed by the patient. Attempts to call family were unsuccessful based on the number in the demographics. No other numbers provided by patient at this time.
[2024-10-02] MEDS ORDERED: ROCURONIUM 10 MG/ML (5 ML VIAL) IV ONE (19:30)
[2024-10-02] MEDS ORDERED: MIDAZOLAM 2 MG/2 ML VIAL ONE (19:30)
[2024-10-02] MEDS ORDERED: SUCCINYLCHOLINE CHLORIDE 200 MG/10 ML VIAL IV ONE (19:30)
[2024-10-02] MEDS: HEPARIN SODIUM PORCINE IV ONE (19:30)
[2024-10-02] MEDS ORDERED: ONDANSETRON 4 MG/2 ML VIAL ONE (19:30)
[2024-10-02] MEDS ORDERED: GLYCOPYRROLATE 0.2 MG/ML 2 ML VIAL ONE (19:30)
[2024-10-02] MEDS ORDERED: NALOXONE 0.4 MG/ML 1 ML VIAL ONE (19:30)
[2024-10-02] MEDS: SODIUM CHLORIDE 0.9% 500 ML 500 ML IV ONE ×2 (19:30→20:25)
[2024-10-02] MEDS: ceFAZolin 1,000 MG in SODIUM CHLORIDE 0.9% 1,000 ML IRRIGATION ONE (19:30)
[2024-10-02] MEDS ORDERED: fentaNYL (PF) 50 MCG/ML 2 ML AMP ONE (19:30)
[2024-10-02] MEDS ORDERED: NEOSTIGMINE 1 MG/ML 10 ML VIAL ONE (19:30)
[2024-10-02] MEDS ORDERED: PROPOFOL 10 MG/ML 20 ML VIAL IV ONE (19:30)
[2024-10-02] MEDS: SODIUM CHLORIDE 0.9% IV ONE (19:30)
[2024-10-02] MEDS ORDERED: LIDOCAINE 1% INJ 10MG/ML (20 ML MDV) ONE (19:30)
--- NOTE | 2024-10-02 20:48 | P.OP ---
Date of Procedure: 10/02/24 Description of Procedure: Preoperative diagnosis: Left wrist laceration with active bleeding, self-inflicted Postoperative diagnosis: Same, superficial arterial laceration Procedure: Exploration left wrist wound Ligation of bleeding superficial artery Repair of palmaris longus tendon Complex wound closure, multilayer Surgeon: Nicole Roldan D.O. EBL: 10 cc IV fluids: See records Urine output: Not measured Drains: None Complications: None immediately apparent Condition: Stable Operative indication and findings: Patient is a 19-year-old male with a self- inflicted left wrist wound that had pulsatile bleeding in the ER. Due to this vascular was consulted by ER physician after phone call reportedly to the trauma surgeon on-call. Per that physician this is an isolated injury and only vascular required evaluation and not physical trauma evaluation. The patient had been placed in a tourniquet by ER and due to this along with the concern for pulsatile bleeding by ER physician the patient was brought to the operative suite for evaluation. Risk and benefits have been discussed previously with the patient who seemingly understood and was willing to proceed. Procedure in detail: The patient was brought to the op suite placed examination. The left upper extremity had a tourniquet replaced in the upper arm. It was set to 150 mmHg and the bandage was removed as well as previous tourniquet but there is no obvious bleeding at this time. There was improvement of the coloration to the hand even with just this minimal congestion. The area was evaluated and inspected, there was some mild oozing which was coagulated. The tourniquet was then brought down and the superficial vessel appeared to be pulsatile. These were identified and clamped at that time. Further investigation evaluation was performed, deep to the fascia there was interruption however did not appear to reach the radial artery which was identified and pulsatile nor the ulnar artery which was similarly was identified and pulsatile. There was multiphasic flow at the site of both these as well as through the wrist and palmar arch. At this point the previously identified vessels were suture-ligated for hemostasis with 3-0 silk. Further evaluation was performed, the palmaris tendon appeared to be partially transected at this level. Areas were freshened and it was loosely tacked together with interrupted sutures of 4-0 Ethibond. The area is copiously irrigated and the wound was closed in multiple levels with 3-0 Vicryl and 2-0 nylon. The area was irrigated the arm was cleansed. There is a palpable pulse radial artery as well as in the ulna with appropriate coloration of the hand. Dressings were placed along with a splint for the hand at this time.
[2024-10-02] MEDS: hydrALAZINE HCL 20 MG/ML 1 ML VIAL IM STA (21:20)
[2024-10-02] MEDS: SODIUM CHLORIDE 0.9% 1,000 ML IV SCH (23:38)
[2024-10-03] MEDS: HYDROmorphone 1 MG/ML 1 ML SYRINGE IVP PRN (04:32)
[2024-10-03] MEDS: ONDANSETRON 4 MG/2 ML VIAL IVP PRN (05:20)
[2024-10-03 05:37] LABS: Amphetamine Screen,Urine Not Detected (NotDetected); Barbiturate Screen,Urine Not Detected (NotDetected); Benzodiazepines Screen,Urine Detected (NotDetected); Cocaine Screen,Urine Not Detected (NotDetected); Methadone Screen, Urine Not Detected (NotDetected); Opiate Screen,Urine Detected (NotDetected); Oxycodone Screen, Urine Not Detected (NotDetected); Phencyclidine Screen,Urine Not Detected (NotDetected); Tricyclic Antidepressant,Urine Not Detected (NotDetected); Urn Cannabinoid Scrn Detected (NotDetected)
[2024-10-03 08:13] LABS: Basophils # (A) 0.06 X 10*3/uL (0.00-0.10); Basophils % (A) 0.6 %; Eosinophils # (A) 0.24 X 10*3/uL (0.04-0.35); Eosinophils % (A) 2.4 %; HCT 39.8 % (39.6-50.0); HGB 13.3 g/dL (13.0-17.0); Lymphocytes # (A) 2.13 X 10*3/uL (0.90-5.00); Lymphocytes % (A) 21.1 %; MCH 29.5 pg (27.0-32.0); MCHC 33.4 g/dL (32.0-37.0); MCV 88.2 FL (80.0-97.0); Mean Platelet Volume 10.5 FL (9.5-12.2); Monocytes # (A) 0.92 X 10*3/uL (0.20-1.00); Monocytes % (A) 9.1 %; NRBC Per 100 WBC 0 X 10*3/uL (0.00-0.01); Neutrophils % (A) 66.2 %; Platelet Count 251 X 10*3/uL (140-440); RBC 4.51 X 10*6/uL (4.40-5.60); RDW 13.2 % (11.5-14.5); WBC 10.11 X 10*3/uL (4.50-10.00)
[2024-10-03 09:08] LABS: ALT 17 U/L (10-49); AST 25 U/L (14-35); Albumin 3.9 g/dL (3.8-4.9); Albumin/Globulin Ratio 1.62 Ratio (1.60-3.17); Alkaline Phosphatase 62 U/L (41-126); BUN/Creat Ratio 10.71 Ratio (12.00-20.00); Blood Urea Nitrogen 7.5 mg/dL (9.0-27.0); Calcium 8.2 mg/dL (8.7-10.3); Carbon Dioxide 22.8 mmol/L (21.6-31.8); Chloride 105 mmol/L (96-109); Globulin 2.4 g/dL (1.6-3.3); Glucose 94 mg/dL (70-110); Lipase 22 U/L (14-60); Magnesium 1.9 mg/dL (1.5-2.4); Phosphorus 3.6 mg/dL (2.4-5.1); Sodium 141 mmol/L (135-145); Total Bilirubin 0.3 mg/dL (0.3-1.2); Total Protein 6.3 g/dL (6.2-8.2)
--- NOTE | 2024-10-03 09:57 | P.PN ---
Subjective Progress Note Date: 10/03/24 Principal diagnosis: Self-inflicted wrist laceration Patient is seen and examined today as a follow-up. Yesterday underwent exploration of left wrist wound, with ligation of bleeding superficial artery and repair of palmaris longus tendon. Patient states he does have some disc omfort but overall is doing well. A little tingling in his fingertips but full range of motion. Patient has sitter at the bedside. Objective - Vital Signs Vital signs: Vital Signs Temp 97.6 F 10/03/24 07:14 Pulse 69 10/03/24 07:14 Resp 14 10/03/24 07:14 BP 113/75 10/03/24 07:14 Pulse Ox 98 10/03/24 07:14 FiO2 Intake & Output 10/02/24 10/03/24 10/03/24 18:59 06:59 18:59 Intake Total 752 Output Total 610 Balance 142 Weight 58.967 kg 58.967 kg Intake: IV 752 Output: Urine 600 Estimated Blood Loss 10 Other: Voiding Method Urinal - Exam General appearance: The patient is alert, oriented, appears in no acute distress. HET: Head is normocephalic and atraumatic. Neck: Supple. Heart: Regular. Lungs: Equal expansion, normal respiratory effort. Abdomen: Soft, nondistended. Extremities: Right hand, knuckles with abrasions. Left forearm with dressing clean dry and intact, with wrist guard, normal skin color and turgor. Palpable +2 radial and ulnar pulse. Sensorimotor intact with good range of motion. [place]ceana, warm, good capillary refill to left hand and fingertips. Neurological: Alert and oriented x 3. - Labs CBC & Chem 7: 10/03/24 04:29 10/03/24 04:29 Labs: Abnormal Lab Results - Last 24 Hours (Table) 10/02/24 10/02/24 10/02/24 Range/Units 18:15 18:15 18:15 Immature Gran # 0.05 H (0.00-0.04) 10*3/uL Urine Opiates Screen (NotDetected) U Benzodiazepines Scrn (NotDetected) U Marijuana (THC) Screen (NotDetected) Serum Alcohol 204 H* mg/dL Crossmatch See Detail 10/03/24 Range/Units 03:31 Immature Gran # (0.00-0.04) 10*3/uL Urine Opiates Screen Detected H (NotDetected) U Benzodiazepines Scrn Detected H (NotDetected) U Marijuana (THC) Screen Detected H (NotDetected) Serum Alcohol mg/dL Crossmatch Assessment and Plan Assessment: 1. Self-inflicted left wrist laceration with active bleeding status post exploration of left wrist wound, ligation of bleeding superficial artery and repair of palmaris longus tendon 2. Suicide attempt Plan: Orthopedic surgery consulted for evaluation of palmaris longus tendon injury status post repair. Appreciate their recommendations Patient may shower but no tub bathing No further intervention per vascular surgery Patient is cleared from vascular surgery for discharge. Follow-up in 1 to 2 weeks. Thank you for this consultation, we will sign off at this time. The impression and plan of care has been dictated as directed. Dr. Lan Orozco performed a history and examination of this patient, discussed the same with the dictator. I agree with the dictator's note ,documented as a scribe. Any additional findings or plans will be noted.
[2024-10-03] MEDS ORDERED: LORazepam 1 MG TAB PO PRN ×3 (10:44)
[2024-10-03] MEDS ORDERED: ACETAMINOPHEN TAB 500 MG TAB PO PRN (10:44)
[2024-10-03] MEDS ORDERED: HYDROcodone/APAP 5-325MG 1 EACH TAB PO PRN (10:44)
[2024-10-03] MEDS ORDERED: LORazepam 0.5 MG TAB PO PRN (10:44)
[2024-10-03] MEDS ORDERED: OLANZapine 5 MG TAB PO PRN (13:56)
[2024-10-03] MEDS: FOLIC ACID 1 MG TAB PO SCH (14:05)
[2024-10-03] MEDS: MULTIVITAMINS, THERA 1 EACH TAB PO SCH (14:05)
--- NOTE | 2024-10-03 14:26 | P.CN ---
Psychiatric Consult - . Consult date: 10/03/24 Consult:: 10/03/24 13:57 IDENTIFYING DATA: This patient is a 19-year-old male, unemployed and living with brother REASON FOR REFERRAL: Psychiatry was consulted for suicide HISTORY OF PRESENT ILLNESS: The patient presented to the hospital with suicide attempt via cutting. Vascular surgeon was consulted and patient is status post repair of tendon. Patient seen and evaluated in his room. Patient expresses that him and his twin brother are both in a relationship with the same girl whom he has been dating for 2 months however he became upset when he saw that her ex was texting her phone. He states also taking 4 shots of alcohol at that time and how he was attempting to reach out to his brother for support however his brother closed the door on him. He states he then picked up a [place] knife that he did not feel was supersharp to cut himself and that his brother himself contacted the ambulance. Patient is still upset with both his girlfriend and twin brother further-checking on him while he is in the hospital. He is happy that he did not complete suicide however he is now dealing with eviction from his apartment due to noise complaints. He reports sleep difficulties, anhedonia, denying any appetite or energy changes, chronic concentration difficulties. He reports anxiety related to the current situation. At this time patient denies any suicidal or homicidal ideations, intent or plan. Patient denies any auditory, visual hallucinations and denies any paranoia or delusions. Patients admits to using nicotine and cannabis daily. PAST PSYCHIATRIC HISTORY: Patient has a history of depression, ADHD, anxiety. Patient denies being on any psychiatric medications. He has tried several psychotropic medications in the past including Abilify, Prozac, Zoloft. He reports 3 previous inpatient hospitalizations, last in 2021. Patient denies any psychiatric outpatient follow-up. Patient denies any history of suicide attempts in the past. PAST MEDICAL HISTORY: Denies. ALLERGIES: as per EMR. CHEMICAL DEPENDENCY HISTORY: as per HPI. FAMILY PSYCHIATRIC/SUBSTANCE USE HISTORY: Denies SOCIAL HISTORY: Patient is single and has no children. He completed high school however is currently unemployed. He lives with his twin brother. MENTAL STATUS EXAM: General Appearance: Patient appears to be stated age is alert, pleasant, and cooperative. Patient appears to have fair hygiene and grooming wearing hospital gown with fair eye contact. Behavior: Patient is calmly lying in bed without any agitated behavior. He becomes upset when talking about his girlfriend Speech: Patient's speech is fluent and nonpressured. Mood/Affect: Patient reports their mood is "depressed", affect is congruent Suicidality/Homicidality: Patient denies having any suicidal or homicidal ideation intent or plan. Perceptions: Patient denies any visual hallucinations and denies any auditory hallucinations Though content/process: There is no evidence of any delusional thought content and thought process is linear and logical. Memory and concentration: AOX3, grossly intact for the purposes of this session. Can spell "WORLD" backwards Judgment and insight: Poor IMPRESSIONS: Suicide attempt via cutting Adjustment disorder with depressed and anxious mood Cluster B traits Nicotine dependence Cannabis use disorder Rule out alcohol use disorder PLAN: -At this time patient DOES meet criteria for inpatient psychiatric admission. -Would recommend the following medication changes/additions: Start as needed Zyprexa for acute safety concerns, will hold off from initiating psychotropic medications until transfer to the [facility] protocol with PRN Ativan for alcohol withdrawal. Continue to monitor vital signs. -Continue 1:1 sitter for safety -Cannot leave AMA at this time. Patient will need a petition and certification if attempting to leave AMA. -When medically stable, patient is eligible for transfer to a psych bed when available. -Communicated plan to patient's nurse -Psychiatry will sign off at this time -Please contact with any questions.
--- NOTE | 2024-10-03 15:24 | HP ---
HISTORY AND PHYSICAL CHIEF COMPLAINTS: Left upper extremity self-inflicted radial artery injury. HISTORY OF PRESENT ILLNESS: This is a 19-year-old gentleman, was admitted with self-inflicted left upper arm laceration. The patient was taken by the local PD to the ER where a tourniquet was applied. The patient underwent exploration of the left wrist wound and ligation of the bleeding superficial artery and repair of palmaris longus tendon by Dr. Roldan. Orthopedic evaluation has been sought. There is no history of fever, rigors, or chills at this time. PAST MEDICAL HISTORY: Reviewed, include ADD, ADHD, and anxiety. Rest of history and chart is also reviewed. HOME MEDICATIONS: None. ALLERGIES: None. FAMILY HISTORY: History of blood clots. SOCIAL HISTORY: Vaping and THC. REVIEW OF SYSTEMS: A 14-point review of systems negative except as mentioned earlier. PHYSICAL EXAMINATION: VITAL SIGNS: Pulse is 69, blood pressure 130/70, and respirations 14. CHEST: Clear to auscultation. CARDIOVASCULAR: S1-S2. ABDOMEN: Soft. NERVOUS SYSTEM: No focal deficits. Left arm status post exploration. LABORATORY DATA: Reviewed. ASSESSMENT: 1. Status post exploration of the left wrist wound and ligation of the bleeding superficial artery and repair of the palmaris longus tendon. 2. Self-inflicted left upper arm lacerated wound. 3. Suicidal attempt. 4. Alcohol intoxication present on admission. 5. Polysubstance abuse. 6. Attention deficit disorder, attention deficit hyperactivity disorder, and anxiety. RECOMMENDATIONS AND DISCUSSION: This is a 19-year-old gentleman presented after self inflicted lacerated wound on the left upper arm. I would recommend to continue current management and continue symptomatic treatment and repeat labs. Closely follow with Vascular Surgery. [facility] protocol and psychiatric consultation possibly referral to inpatient psych unit. Guarded prognosis, because of multiple complex medical issues. Further recommendations to follow. Closely follow with Orthopedic Surgery also. MMODL / IJN: [id number] /
[2024-10-03] MEDS: THIAMINE 100 MG TAB PO SCH (16:59)
[2024-10-03] MEDS: OLANZapine 10 MG VIAL IM PRN (16:59)
[2024-10-03] MEDS ORDERED: ZIPRASIDONE 20 MG VIAL IM PRN (18:02)
--- NOTE | 2024-10-03 20:51 | P.CNOR ---
History of Present Illness - [facility] Consult date: 10/03/24 Consult reason: other (Left forearm laceration with concern for tendon injury) History of present illness: Patient presented to the emergency room yesterday evening where he was found to be intoxicated and sustained a self-inflicted laceration to the mid volar forearm. There was reportedly arterial involvement and patient initially presented with a tourniquet applied. Patient was taken to the OR overnight by trauma surgery where the wound was explored there was found to be a superficial artery branch that was lacerated and subsequently ligated, there was also reportedly concern for damage to the palmaris longus tendon this was also loosely repaired at the time of surgery. There were no other overt structures noted to be damaged. Initially my partner who is on-call that evening was consulted however given the intact nature of the radial and ulnar arteries there was no urgent orthopedic intervention required. My partner had reached out to me for request regarding further management of this injury. Today patient notes some mild pain to the left forearm however he denies any overt numbness to the left hand or area of the forearm distal to the laceration site. He has full motion to all digits of the hand and has mild pain with flexion and extension of the wrist but has intact motion to both of these planes. Patient is unable to give very detailed accounts of what happened or what led him to attempt suicide last night however currently he denies active suicidal ideation. He notes some mild wound to the palm of his hand however denies any further injuries at this time. Patient is right-hand dominant, he does not note any current employment. Patient has a history of anxiety, ADHD but no further reported medical history. Review of Systems Constitutional: Denies chills, Denies fever Cardiovascular: Denies lightheadedness, Denies rapid heart beat Respiratory: Denies wheezing Musculoskeletal: Reports as per HPI Neurological: Denies sensory deficit Psychiatric: Reports anxiety, Reports depression, Reports suicidal ideation (Suicidal ideation at the time of his incident yesterday but not currently on my exam) Past Medical History Past Medical History: No Reported History Additional Past Medical History / Comment(s): adhd and a mood disorder per mom, sleep disorder History of Any Multi-Drug Resistant Organisms: None Reported Past Surgical History: Appendectomy Past Anesthesia/Blood Transfusion Reactions: Unable to Obtain Past Psychological History: ADD/ADHD, Anxiety Smoking Status: Vaper Past Alcohol Use History: None Reported Past Drug Use History: Marijuana - Past Family History Mother Additional Family Medical History / Comment(s): Pt states mom of blood clots Father History Unknown: Yes Medications and Allergies Home Medications Medication Instructions Recorded Confirmed Type No Known Home Medications 10/02/24 10/02/24 History Allergies Allergy/AdvReac Type Severity Reaction Status Date / Time No Known Allergies Allergy Verified 10/02/24 18:33 Physical Examination General: Patient is in no acute distress, he is alert and oriented appropriatel y, however he does have an overall depressed affect and does not seem to follow my exam questions fully appropriately. He will describe feelings of numbness and areas completely unrelated to the anatomic location of his laceration and will give limited effort to the exam overall. Cardiovascular: Intact radial pulse brisk capillary refill to all extremities however most relevant to the left upper extremity and hand Pulmonary: Patient is in no respiratory distress and has no audible wheezing Musculoskeletal: Left forearm: Surgical dressings are in place and clean and well-appearing: Patient has mild swelling to the mid aspect of the forearm he has some tenderness as expected at the site of his laceration and repair Overall wrist and hand are resting in an appropriate position with normal cascade of the digits There is no appearance of any clawing to the digits of the hand Patient reports having intact light touch sensation to the left hand in the median, ulnar but will describe some numbness to the dorsal aspect of his radial hand. FCR tendon is palpable within the distal aspect of the wrist however this becomes less prominent as expected in the mid and proximal forearm this is in the area of his surgical site so I am unable to definitively rule out laceration, patient does have intact wrist flexion without any overt ulnar deviation with wrist flexion Patient has full range of motion to the wrist to flexion, extension, ulnar deviation, radial deviation Patient has full range of motion to all digits of the hand Isolation testing of all IP joints of the thumb as well as index through small fingers reveals that all of his tendons are appropriately intact and functioning Patient has a palpable radial pulse and brisk capillary refill less than 3 seconds to all digits of the hand Results MRI of the left forearm is currently pending Operative reports from trauma surgery reviewed which demonstrates that which was dictated in the HPI. - Labs Labs: Abnormal Lab Results - Last 24 Hours (Table) 10/02/24 10/03/24 10/03/24 Range/Units 18:15 03:31 04:29 WBC 10.11 H (4.50-10.00) X 10*3/uL Immature Gran # 0.06 H (0.00-0.04) X 10*3/uL Anion Gap (4.00-12.00) mmol/L BUN (9.0-27.0) mg/dL BUN/Creatinine Ratio (12.00-20.00) Ratio Calcium (8.7-10.3) mg/dL Urine Opiates Screen Detected H (NotDetected) U Benzodiazepines Scrn Detected H (NotDetected) U Marijuana (THC) Screen Detected H (NotDetected) Crossmatch See Detail 10/03/24 Range/Units 04:29 WBC (4.50-10.00) X 10*3/uL Immature Gran # (0.00-0.04) X 10*3/uL Anion Gap 13.20 H (4.00-12.00) mmol/L BUN 7.5 L (9.0-27.0) mg/dL BUN/Creatinine Ratio 10.71 L (12.00-20.00) Ratio Calcium 8.2 L (8.7-10.3) mg/dL Urine Opiates Screen (NotDetected) U Benzodiazepines Scrn (NotDetected) U Marijuana (THC) Screen (NotDetected) Crossmatch H & H 10/02/24 10/03/24 Range/Units 18:15 04:29 Hgb 15.7 13.3 (13.0-17.0) g/dL Hct 45.4 39.8 (39.6-50.0) % Coagulation 10/02/24 Range/Units 18:15 INR 1.0 (<1.2) Result Diagrams: 10/03/24 04:29 10/03/24 04:29 Assessment and Plan Assessment: Left forearm laceration with concern for tendon involvement Plan: Patient should be nonweightbearing to the left hand Elevation to help with residual swelling MRI of the left forearm will be obtained for further assessment of any soft tissue structure involvement At the time of wound exploration the only structure noted to be damaged at that time was the palmaris longus tendon, should this be the only structure with concern for involvement based on MRI and repeat exam findings no further surgical intervention would be warranted as this tendon is overall expendable Patient will have repeated exams in order to better elicit the possibility of further tendon or nerve damage At the time of exam I unfortunately did not have 2 point discrimination or monofilament testing devices this will be repeated tomorrow to get more detailed assessment for any potential nerve involvement Further surgical plans will be formalized based on MRI findings and serial examinations. Discussed with the patient that final treatment plans will be made again based off of the upcoming MRI results as well as further and more detailed nerve/tendon exams Appreciate medicine and psychiatric input Will update the teams once definitive treatment plans either conservative or surgical are determined
[2024-10-04 08:03] LABS: Basophils # (A) 0.03 X 10*3/uL (0.00-0.10); Basophils % (A) 0.5 %; Eosinophils # (A) 0.24 X 10*3/uL (0.04-0.35); Eosinophils % (A) 3.9 %; HCT 41.2 % (39.6-50.0); Lymphocytes # (A) 2.44 X 10*3/uL (0.90-5.00); Lymphocytes % (A) 39.4 %; MCH 30.1 pg (27.0-32.0); MCV 88.6 FL (80.0-97.0); Mean Platelet Volume 10.5 FL (9.5-12.2); Monocytes # (A) 0.66 X 10*3/uL (0.20-1.00); Monocytes % (A) 10.7 %; NRBC Per 100 WBC 0 X 10*3/uL (0.00-0.01); Neutrophils # (A) 2.79 X 10*3/uL (1.80-7.70); Platelet Count 207 X 10*3/uL (140-440); RBC 4.65 X 10*6/uL (4.40-5.60); WBC 6.19 X 10*3/uL (4.50-10.00)
[2024-10-04] MEDS: PANTOPRAZOLE 40 MG TABLET PO SCH (08:30)
--- NOTE | 2024-10-04 08:31 | MR ---
EXAMINATION TYPE: MR forearm LT wo con DATE OF EXAM: 10/03/2024 4:29 PM COMPARISON: None. CLINICAL INDICATION: Male, 19 years old with history of Left forearm laceration, eval tendon/nerve in jury; [facility], Left forearm laceration, eval tendon/nerve injury TECHNIQUE: MR forearm LT wo con; Multiplanar, multisequence technique was utilized in order to study. Contrast: mL (none if empty) FINDINGS: Laceration of the flexor carpi radialis in the mid forearm as well as another muscle belly/tendon med ially which is just superficial to the flexor digitorum superficialis. There is likely some muscle be lly damage to the flexor digitorum superficialis. At least couple superficial veins also are transect ed. Mild edema present. The major arteries of the forearm are intact. Including the radial artery wit h 2 veins and ulnar artery with its 2 veins. IMPRESSION: 1. Laceration of the flexor carpi radialis in the mid forearm lacerated medially which is just super ficial to the flexor digitorum superficialis. 2. Intact radial and ulnar arteries. 3. [facility], , 10/04/2024 8:28 AM
[2024-10-04 09:10] LABS: BUN/Creat Ratio 14.29 Ratio (12.00-20.00); Glucose 96 mg/dL (70-110)
[2024-10-04 09:11] LABS: ALT 16 U/L (10-49); AST 20 U/L (14-35); Albumin 4.3 g/dL (3.8-4.9); Albumin/Globulin Ratio 1.65 Ratio (1.60-3.17); Alkaline Phosphatase 62 U/L (41-126); Chloride 102 mmol/L (96-109); Globulin 2.6 g/dL (1.6-3.3); Sodium 139 mmol/L (135-145); Total Bilirubin 0.6 mg/dL (0.3-1.2); Total Protein 6.9 g/dL (6.2-8.2)
--- NOTE | 2024-10-04 12:52 | P.PN ---
Progress Note - Text Progress Note Date: 10/04/24 Patient was seen and evaluated this morning, notes minimal pain to the left forearm today. Denies any range of motion limitations to the digits of the hand as well as the wrist. Denies any significant numbness to the left hand. On exam patient continues to have full range of motion to all digits of the hand there is intact independent motion at all joints of the digits of the hand Neurovascular exam shows intact radial pulses and brisk capillary refill to all digits of the hand Sensory exam with 2-point discrimination is within normal limits to the median and ulnar distributions of the hand, he has intact sensation to the palm of the hand motor exam to the thenar muscles is 5/5 MRI of the left forearm was reviewed which demonstrates lacerations of the FCR tendon as well as the likely palmaris longus tendon based on previous operative reports There is intact radial and ulnar arteries The median nerve is not commented on however clinically there does not appear to be any signs of laceration Had a detailed discussion with the patient today regarding the MRI findings and his FCR and palmaris longus lacerations, we discussed that repair of the FCR tendon would provide him greater functional strength with flexion of the wrist however this would require a period of prolonged splint wear and immobilization as well as likely physical therapy postoperatively. Currently patient is happy with his level of function and does not feel he has any limitations with use of his hand or wrist. At this time he does not wish to pursue any further surgical intervention, we discussed that while his exam is reassuring the only definitive way to rule out injury to the median nerve would be for a wound exploration however patient again wishes to avoid any further surgical intervention at this time. Patient may perform activity as tolerated to his left hand, dressings and sutures will be managed by general surgery but likely will be removed around 2 weeks postoperatively Patient does not require any further follow-up with orthopedics at this time Please reach out to our team with any further questions but orthopedics will sign off at this time.
--- NOTE | 2024-10-04 17:13 | P.DS ---
Providers Date of admission: 10/02/24 19:26 Expected date of discharge: 10/04/24 Attending physician: Majo Monte Consults: 10/02/24 19:24 Consult Physician Routine Consulting Provider: Psychiatry - [facility] Psych[facility] Consult Reason/Comments: suicide Do you want consulting provider notified?: Yes Consult Physician Routine Consulting Provider: Majo Monte Consult Reason/Comments: [employer] Do you want consulting provider notified?: Yes 10/02/24 20:49 Consult Physician Routine Consulting Provider: Lamont Littlejohn Consult Reason/Comments: eval LUE, likely palmaris partial transection Do you want consulting provider notified?: Yes 10/03/24 08:04 Consult Physician Routine Consulting Provider: Nicole Glasgow Consult Reason/Comments: left wrist laceration Do you want consulting provider notified?: Already Contacted Primary care physician: Stated None Hospital Course: Final diagnosis Self-inflicted left upper arm laceration with repair by vascular surgery, status post exploration of the left wrist wound and ligation of bleeding of the superficial artery and repair of palmaris longus tendon Suicide attempt Vaping Acute alcohol intoxication, present on admission History of polysubstance abuse ADD/ADHD/anxiety history GI prophylaxis DVT prophylaxis Full code Discharge disposition Patient is being transferred in a stable condition with guarded prognosis to [facility] inpatient psychiatric unit here at [facility]. Patient will follow-up with in the outpatient setting upon discharge. Patient is to continue with hemodialysis as scheduled. Total time taken is greater than 35 minutes. Hospital course This is a 19-year-old male who was recently admitted with suicidal attempt with a left upper forearm self-inflicted laceration being closely monitored. Patient was brought in by the police department and tourniquet was required and patient was evaluated emergently by vascular surgery with left wrist ligation of the bleeding superficial artery with repair of the palmaris longus tendon. Patient evaluated by orthopedics recommending continuing conservative management and may follow-up outpatient. MRI was ordered. Patient also evaluated by psychiatry with severe depression and suicidal ideation and was reported he meets inpatient criteria and will be transferred to [facility] once a bed is available. Patient has been cleared by consultations for discharge to psych. Patient's dressing on the left wrist is dry and intact with no further bleeding noted. Patient is medically stable to transfer to [facility]. Please refer to other consultation notes for further HPI. Currently no reports of chest pain, shortness of breath, or palpitations. Patient is afebrile. No reports of nausea or vomiting and patient is tolerating diet. Patient will be going to [address] for psychiatric evaluation today once a bed is available. Physical exam: Gen: This is a 19-year-old male who is awake, alert and oriented x 3, well- developed, thin built HEENT: Head is atraumatic, normocephalic. Pupils equal, round. Sclerae is anicteric. NECK: Supple. No JVD. No lymphadenopathy. No thyromegaly. LUNGS: Diminished breath sounds bilaterally otherwise clear to auscultation. No wheezes or rhonchi. No intercostal retractions. HEART: Regular rate and rhythm. No murmur. ABDOMEN: Soft. Thin build. Bowel sounds are present. No masses. No tenderness. EXTREMITIES: No pedal edema. No calf tenderness. NEUROLOGICAL: Patient is awake, alert and oriented x3. Cranial nerves 2 through 12 are grossly intact. Please refer to medication reconciliation sheet for a list of medications. The impression and plan of care has been dictated by Maria Dolores Wilhelm, Nurse Practitioner as directed. Dr. Lavell MD I have performed a history and examination and MDM of this patient, discussed the same with the dictator, and agree with the dictator's assessment and plan as written ,documented as a scribe. Based on total visit time, I have performed more than 50% of the visit. Patient Condition at Discharge: Fair Plan - Discharge Summary Discharge Rx Participant: Yes New Discharge Prescriptions: New Multivitamins, Thera [Multivitamin (formulary)] 1 each PO DAILY@1200 tab Pantoprazole [Protonix] 40 mg PO AC-BRKFST tab OLANZapine [ZyPREXA] 5 mg PO BID PRN tab PRN Reason: Agitation Folic Acid 1 mg PO DAILY@1200 tab Acetaminophen Tab [Tylenol] 500 mg PO Q6HR PRN tab PRN Reason: Fever and/ or Mild Pain Thiamine [Vitamin B-1] 100 mg PO BID-W/MEALS tab Discharge Medication List Acetaminophen Tab [Tylenol] 500 mg PO Q6HR PRN tab 10/04/24 [Rx] Folic Acid 1 mg PO DAILY@1200 tab 10/04/24 [Rx] Multivitamins, Thera [Multivitamin (formulary)] 1 each PO DAILY@1200 tab 10/04/24 [Rx] OLANZapine [ZyPREXA] 5 mg PO BID PRN tab 10/04/24 [Rx] Pantoprazole [Protonix] 40 mg PO AC-BRKFST tab 10/04/24 [Rx] Thiamine [Vitamin B-1] 100 mg PO BID-W/MEALS tab 10/04/24 [Rx] Follow up Appointment(s)/Referral(s): Nicole Glasgow DO [STAFF PHYSICIAN] - 2 Weeks Becky Simmons MD [STAFF PHYSICIAN] - 1 Week Activity/Diet/Wound Care/Special Instructions: Patient is medically stable and cleared to go to [facility] for further psychiatric evaluation Follow-up with orthopedics outpatient Follow-up with vascular surgery outpatient Discharge/Stand Alone Forms: AA Meetings [facility], [facility] Resources, Outpatient Counseling, Inp Substance Abuse Facilities Discharge Disposition: TRANSFER TO PSYCH HOSP/UNIT
[2024-10-04 20:52] VITALS: BP 123/74; PULSE 77; RESP 16; TEMP 98.1
== END 2024-10-04 22:45 | DRG 180 ==
LOC: EC 18:12 → 5NMEDONC 19:26
PROVIDERS: ADMIT Hospitalist; ATTEND Hospitalist
PROC: 0X3F0ZZ Control Bleeding in Left Lower Arm, Open Approach (ICD-10-PCS; principal; 2024-10-02 19:30)
PROC: 0LQ60ZZ Repair Left Lower Arm and Wrist Tendon, Open Approach (ICD-10-PCS; principal; 2024-10-02 19:30)
DX: S55.812A Laceration of other blood vessels at forearm level, left arm, initial encounter (principal); S66.822A Laceration of other specified muscles, fascia and tendons at wrist and hand level, left hand, initial encounter; S61.512A Laceration without foreign body of left wrist, initial encounter; X78.1XXA Intentional self-harm by knife, initial encounter; F98.8 Other specified behavioral and emotional disorders with onset usually occurring in childhood and adolescence; F43.23 Adjustment disorder with mixed anxiety and depressed mood; F17.200 Nicotine dependence, unspecified, uncomplicated; F10.129 Alcohol abuse with intoxication, unspecified; F12.10 Cannabis abuse, uncomplicated; F90.9 Attention-deficit hyperactivity disorder, unspecified type; Z56.0 Unemployment, unspecified; G47.9 Sleep disorder, unspecified
CPT/HCPCS: 36415; 80053; 80306; 80320; 83605; 83690; 83735; 84100; 84484; 85025; 85610; 85730; 86850; 86900; 86901; 86920; 87635; 90471; 90715; 93005; 96365; 96375; 99291

== ENCOUNTER 2024-10-04 20:07 | Inpatient (IN) | payer MEDICAID, OTHER ==
[2024-10-04] MEDS ORDERED: IBUPROFEN 600 MG TAB PO PRN (20:58)
[2024-10-04] MEDS ORDERED: MAG HYDROX/AL HYDROX/SIMETH 355 ML BOTTLE PO PRN (20:58)
[2024-10-04] MEDS ORDERED: MAGNESIUM HYDROXIDE 2,400 MG/30 ML CUP PO PRN (20:58)
[2024-10-04] MEDS ORDERED: ACETAMINOPHEN TAB 325 MG TAB PO PRN (20:58)
[2024-10-04] MEDS ORDERED: LORazepam 2 MG/ML INJ IM PRN (21:00)
[2024-10-04] MEDS ORDERED: haloperidoL 5 MG TAB PO PRN (21:00)
[2024-10-04] MEDS ORDERED: HALOPERIDOL LACTATE 5 MG/ML 1 ML VIAL IM PRN (21:00)
[2024-10-04] MEDS: LORazepam 1 MG TAB PO PRN (23:25)
[2024-10-05] MEDS: NICOTINE 14MG/24HR PATCH TRANSDERM SCH (09:01)
[2024-10-05 09:52] LABS: Appearance,Urine Clear (Clear); Bilirubin,Urine Negative (Negative); Blood,Urine Negative (Negative); Color,Urine Yellow; Glucose,Urine (UA) Negative (Negative); Ketones,Urine Negative (Negative); Leukocyte Esterase,Urine Negative (Negative); Nitrite,Urine Negative (Negative); Protein,Urine Negative (Negative); Specific Gravity,Urine 1.014 (1.001-1.035); Urobilinogen,Urine <2.0 mg/dL (<2.0)
--- NOTE | 2024-10-05 12:27 | P.HP ---
Psychiatric H&P - . H&P Date: 10/05/24 History & Physical: Allergies Allergy/AdvReac Type Severity Reaction Status Date / Time No Known Allergies Allergy Verified 10/02/24 18:33 Vital Signs Temp 97.9 F 10/05/24 08:58 Pulse 108 H 10/05/24 10:27 Resp 16 10/04/24 23:12 BP 118/84 10/05/24 08:58 Pulse Ox 98 10/05/24 08:58 FiO2 Intake & Output 10/04/24 10/05/24 10/05/24 18:59 06:59 18:59 Weight 61.348 kg Laboratory Last Values Estimated Ave Glu mg/dL 100 mg/dL 10/05/24 07:40 Hemoglobin A1c 5.1 % (<=6.0) 10/05/24 07:40 TSH 2.330 mIU/L (0.465-4.680) 10/05/24 07:40 Urine Color Yellow 10/05/24 09:27 Urine Appearance Clear (Clear) 10/05/24 09:27 Urine pH 7.0 (5.0-8.0) 10/05/24 09:27 Ur Specific Burney 1.014 (1.001-1.035) 10/05/24 09:27 Urine Protein Negative (Negative) 10/05/24 09:27 Urine Glucose (UA) Negative (Negative) 10/05/24 09:27 Urine Ketones Negative (Negative) 10/05/24 09:27 Urine Blood Negative (Negative) 10/05/24 09:27 Urine Nitrite Negative (Negative) 10/05/24 09:27 Urine Bilirubin Negative (Negative) 10/05/24 09:27 Urine Urobilinogen <2.0 mg/dL (<2.0) 10/05/24 09:27 Ur Leukocyte Esterase Negative (Negative) 10/05/24 09:27 10/05/24 12:21 IDENTIFYING DATA: Patient is a 19-year-old male, unemployed and living with twin brother CHIEF COMPLAINT: Suicide attempt via cutting HPI: Patient presented to the hospital with suicide attempt. Patient was seen by life insurance underwriter on the consult service with the note as follows, " The patient presented to the hospital with suicide attempt via cutting. Vascular surgeon was consulted and patient is status post repair of tendon. Patient seen and evaluated in his room. Patient expresses that him and his twin brother are both in a relationship with the same girl whom he has been dating for 2 months however he became upset when he saw that her ex was texting her phone. He states also taking 4 shots of alcohol at that time and how he was attempting to reach out to his brother for support however his brother closed the door on him. He states he then picked up a Czech knife that he did not feel was supersharp to cut himself and that his brother himself contacted the ambulance. Patient is still upset with both his girlfriend and twin brother further- checking on him while he is in the hospital. He is happy that he did not complete suicide however he is now dealing with eviction from his apartment due to noise complaints. He reports sleep difficulties, anhedonia, denying any appetite or energy changes, chronic concentration difficulties. He reports anxiety related to the current situation. At this time patient denies any suicidal or homicidal ideations, intent or plan. Patient denies any auditory, visual hallucinations and denies any paranoia or delusions. Patients admits to using nicotine and cannabis daily." Patient seen and evaluated on the unit and was agreeable with speaking to life insurance underwriter in office. He states he has still been unable to reach his twin brother however states "there is no beef between me and him". He continues to struggle with his girlfriend cheating on him with her ex, he was encouraged to learn from the situation and focus on himself to which he agreed. Patient does admit to difficulties controlling his anger, admitted to damage on his rental property that ultimately led him to be evicted in 5-6 days. He states now that he is in treatment and is willing to follow-up with [facility] to begin therapy, he is hopeful his landlord is more understanding and is able to give him a second chance. Patient was fixated on his ex-girlfriend's infidelity, stating that she blocked him on Snapchat which hurt him. He continues to reiterate how he cut himself so that he can get his brother's attention, not knowing that the knife was sharp and would cut his artery. He states his hand and arm feels fine and he is able to write and play video games. Patient denies any suicidal or homicidal ideations intent or plan. At this time patient denies any auditory or visual hallucinations. Patient denies any flight of ideas racing thoughts and increased in goal directed behavior. Patient admits to using nicotine and cannabis daily. PAST PSYCHIATRIC HISTORY: Patient has a history of depression, ADHD, anxiety. Patient denies being on any psychiatric medications. He has tried several psychotropic medications in the past including Abilify, Prozac, Zoloft. He reports 3 previous inpatient hospitalizations, most recent being in 2021. Patient denies any psychiatric outpatient follow-up. Patient denies any history of suicide attempts in the past. PMH: as per ER note ALLERGIES: as per EMR SUBSTANCE USE HISTORY: As per HPI FAMILY PSYCHIATRIC/SUBSTANCE USE HISTORY: Denies SOCIAL HISTORY: Patient is single and has no children. He completed high school, is unemployed and living with his twin brother however was recently evicted due to damaging property MENTAL STATUS EXAM: General Appearance: Patient appears to be stated age is alert, directable, and attempts to cooperate. Patient appears to have fair hygiene and grooming. He has curly red hair. Behavior: Patient is seated without any agitated behavior. Speech: Patient's speech is fluent and nonpressured. Mood/Affect: Patient reports their mood is "pissed off that she cheated on me", affect is congruent and blunted but reactive Suicidality/Homicidality: Patient denies having any homicidal ideation intent or plan. Denies any suicidal ideations intent or plan Perceptions: Patient denies any visual hallucinations and denies any auditory hallucinations Though content/process: There is no evidence of any delusional thought content and thought process is linear and goal-directed. Memory and concentration: AOX3, grossly intact for the purposes of this session. Can spell "WORLD" backwards Judgment and insight: Poor STRENGTHS/WEAKNESSES: strength is that patient is resilient. Weakness is that patient has poor judgment and is impulsive INTELLECT: Average IMPRESSIONS: Adjustment disorder with depressed and anxious mood Suicide attempt via cutting Cluster B traits Nicotine dependence Cannabis use disorder PLAN: -Patient is admitted under voluntary status to [facility] for stabilization of psychiatric symptoms and safety. Patient has signed adult voluntary form and and is placed in patient's chart. -Medications : Start Zyprexa Zydis 5 mg at bedtime for mood stabilization, melatonin 10 mg at bedtime for insomnia - Ativan and Haldol PRN for agitation/aggression -Patient was counselled on substance abuse and desired to cut back on use -Patient was informed of the risks, benefits and side effects of the medication and patient verbally consented to taking the medications. Patient signed med consent form and was placed in chart. Patient offered and accepted patient education sheet for psychotropic medications. -Internal Medicine consult to perform medical evaluation and physical. -NRT -nicotine patch -SW on board for discharge planning. Encourage patient to participate in groups to work on coping skills.
[2024-10-05] MEDS: MULTIVITAMINS, THERA 1 EACH TAB PO SCH (12:29)
[2024-10-05] MEDS: FOLIC ACID 1 MG TAB PO SCH (12:29)
[2024-10-05] MEDS: HEPARIN SODIUM,PORCINE 5,000 UNIT/ML 1 ML VIAL SQ SCH (12:29)
[2024-10-05] MEDS: THIAMINE 100 MG TAB PO SCH (12:29)
[2024-10-05] MEDS: BACITRACIN OINT 1 EACH PACKET TOPICAL SCH (15:01)
[2024-10-05] MEDS: CEPHALEXIN 500 MG CAP PO SCH (15:02)
[2024-10-05] MEDS: MUPIROCIN 2% OINT 22 GM TUBE TOPICAL SCH (15:02)
[2024-10-05] MEDS: MELATONIN 5 MG TABLET PO SCH (21:04)
[2024-10-05] MEDS: OLANZapine ODT 5 MG TAB PO SCH (21:04)
--- NOTE | 2024-10-05 22:41 | CONS ---
CONSULTATION REASON FOR CONSULTATION: Advice regarding wound on the left hand and other issues, requested by Psychiatry. HISTORY OF PRESENT ILLNESS: 19-year-old gentleman with a past medical history of multiple medical issues including the left upper extremity self-inflicted wound, which was referred by Vascular Surgery with superficial artery wound as well as palmaris longus tendon. The patient also had multiple skin lesions on the right shoulder and lower back area with some road rash and surrounding cellulitis also. There is no history of any fever, rigors, or chills at this time. The patient also had some stanley from the tourniquet applied apparently by the first responders on the proximal part of the left forearm also. PAST MEDICAL HISTORY: Reviewed. Includes ADHD and other history reviewed. HOME MEDICATIONS: Reviewed and include thiamine. Doses are not confirmed yet. Rest of medication confirmed. ALLERGIES: None. FAMILY HISTORY: Mom of blood clots apparently. SOCIAL HISTORY: History of vaping and THC. REVIEW OF SYSTEMS: 14-point review of systems negative except as mentioned earlier. PHYSICAL EXAMINATION: VITAL SIGNS: Pulse is 67, blood pressure 110/83, and respirations 16. HEENT: Conjunctivae normal. NECK: No jugular venous distention. EXTREMITIES: Legs, no edema, no swelling. Examination of the left forearm incised wound, which is sutured and the tourniquet stanley present in the left forearm. As mentioned earlier, there is some cellulitis and surrounding erythema and tenderness in the right shoulder as well as lower back area also present. NERVOUS SYSTEM: No focal deficit. CARDIOVASCULAR: S1, S2. RESPIRATION: Clear to auscultation. ABDOMEN: Soft, nontender. LABORATORY DATA: Reviewed. ASSESSMENT: 1. Status post exploration of the left wrist wound, left upper forearm wound, and ligation of the bleeding superficial artery and repair of the palmaris longus tendon. 2. Self-inflicted left upper arm lacerated wound. 3. Multiple areas of bruising and cellulitis. 4. Suicidal attempts. 5. Alcohol intoxication present on admission. 6. Polysubstance abuse history. 7. Attention deficit disorder, attention deficit hyperactivity disorder, and anxiety. RECOMMENDATION/DISCUSSION: This 19-year-old gentleman presented with multiple complex medical issues. Recommend to continue with the current medication. I would recommend a short course of IV antibiotics Keflex 500 mg t.i.d. for 5 days. I would also recommend local antibiotic application. The patient is not getting better, please let us know. Otherwise, symptomatic treatment. I would also recommend suture removal after the required period and followup also. I would also recommend DVT prophylaxis because of family history as well. Otherwise, we will follow the patient closely and continue to monitor. D-dimer also will be ordered. The patient is slightly tachycardic. MMSYLVIAL / NICOLEN: [id number] /
--- NOTE | 2024-10-06 10:26 | P.PN ---
Progress Note - Text Progress Note Date: 10/06/24 Interval History: Patient was seen in group and was directable and agreeable to speak with keno writer/runner in the office. He states he still has not been able to speak to his twin brother, unsure why he will not speak to him. This is impacting his mood as he feels as though his brother is not supporting him in his time of need. Patient was encouraged to focus on himself, as he is unable to change the behaviors of other people to which he acknowledged. He states sleeping well, feels as though his anger is better controlled. He states his older brother is also not supportive, he has not brought any clothes for him. He feels as though he might be evicted on Wednesday, discussed shelters with patient given his homelessness. At this time patient denies any suicidal or homicidal ideations, intent or plan. Patient denies any auditory, visual hallucinations and denies any paranoia or delusions. Patient denies any side effects from the medications and has been compliant with meds. Mental Status Exam: General Appearance: Patient appears to be stated age is alert, directable, and cooperative. He has fair grooming and hygiene, curly red hair Behavior: Patient is calmly seated without any agitated behavior. Speech: Patient's speech is fluent and nonpressured. Mood/Affect: Mood is improving mildly, affect is congruent and flat. Suicidality/Homicidality: Patient denies having any suicidal or homicidal ideation intent or plan. Perceptions: Patient denies any visual hallucinations and denies any auditory hallucinations Though content/process: There is no evidence of any delusional thought content and thought process is linear and goal-directed. Memory and concentration: AOX3, grossly intact for the purposes of this session Judgment and insight: Improving mildly Assessment Adjustment disorder with depressed anxious mood Suicide attempt via cutting Cluster B traits Nicotine dependence Cannabis use disorder Plan: -Patient continues to meet criteria for inpatient psychiatric admission for symptom stabilization and safety. Patient has signed adult voluntary form and medication consent and was placed in patient's chart. -Medications: Continue Zyprexa Zydis 5 mg at bedtime for mood stabilization, melatonin 10 mg at bedtime for insomnia -When necessary Ativan and Haldol for agitation/aggression. -Labs: A1c, TSH, D-dimer all WNL -NRT - nicotine patch -SW on board for discharge planning. Encouraged the patient to participate in milieu. Anticipate discharge on Wednesday, prison versus home with twin
--- NOTE | 2024-10-07 09:54 | P.CN ---
Psychiatric Consult - . Consult date: 10/07/24 Consult:: 10/07/24 09:51 Interval History: Patient was seen wandering the hallways and was directable and agreeable to speak with financial writer in the office. Meeting the patient he notes that he is doing "good". He notes that he has been going to groups and finds this "beneficial". He has not been in touch with his twin brother which is frustrating to him. He still does not know if he is homeless. He denies any depression and only notes mild anxiety today. He denies any suicidal thoughts. He denies any problems with sleep, energy, appetite or concentration. We discussed his anger issues and whether anger was a primary or secondary emotion. Patient had a hard time identifying that anger is a secondary emotion and fear is the primary emotion. We also talked about arguments and how they stop and she locked away. Patient had a hard time grasping this. Mental Status Exam: General Appearance: Patient appears to be stated age is alert, directable, and cooperative. Behavior: Patient is calmly seated without any agitated behavior. Speech: Patient's speech is fluent and nonpressured. Mood/Affect: Mood is improving mildly, affect is congruent and constricted. Suicidality/Homicidality: Patient denies having any suicidal or homicidal ideation intent or plan. Perceptions: Patient denies any visual hallucinations and denies any auditory hallucinations Though content/process: There is no evidence of any delusional thought content and thought process is linear and goal-directed. Memory and concentration: AOX3, grossly intact for the purposes of this session Judgment and insight: Improving mildly Assessment Adjustment disorder with depressed anxious mood Suicide attempt via cutting Cluster B traits Nicotine dependence Cannabis use disorder Plan: -Patient continues to meet criteria for inpatient psychiatric admission for symptom stabilization and safety. Patient has signed adult voluntary form and medication consent and was placed in patient's chart. -Medications: Continue Zyprexa Zydis 5 mg at bedtime for mood stabilization, melatonin 10 mg at bedtime for insomnia -When necessary Ativan and Haldol for agitation/aggression. -Labs: A1c, TSH, D-dimer all WNL -NRT - nicotine patch -SW on board for discharge planning. Encouraged the patient to participate in milieu. Anticipate discharge on Wednesday, alf versus home with twin
[2024-10-08 08:54] VITALS: RESP 16
--- NOTE | 2024-10-08 09:00 | P.PN ---
Progress Note - Text Progress Note Date: 10/08/24 Interval History: Patient was seen wandering the hallways and was directable and agreeable to tatum cueto with justowriter operator in the office. Patient notes that he contacted his and Trish who was in the hospital. He notes that he still cannot get in touch with his twin brother. He does not know if he is going to be homeless upon discharge. He states he will figure this out because he lives [address] [place] [address] hospital. Patient denies any ongoing depression and notes only mild anxiety. He notes that his sleep, energy, appetite and concentration are good. He was able to identify anger as a secondary emotion and fear as a primary emotion today and he has been thinking about it. At this time patient denies any suicidal or homical ideations, intent or plan. Patient denies any auditory, visual hallucinations and denies any paranoia or delusions. Patient denies any side effects from the medications and has been compliant with meds. Mental Status Exam: General Appearance: Patient appears to be stated age is alert, directable, and cooperative. Behavior: Patient is calmly seated without any agitated behavior. Speech: Patient's speech is fluent and nonpressured. Mood/Affect: Mood is improving mildly, affect is congruent and constricted. Suicidality/Homicidality: Patient denies having any suicidal or homicidal ideation intent or plan. Perceptions: Patient denies any visual hallucinations and denies any auditory hallucinations Though content/process: There is no evidence of any delusional thought content and thought process is linear and goal-directed. Memory and concentration: AOX3, grossly intact for the purposes of this session Judgment and insight: Improving mildly Assessment Adjustment disorder with depressed anxious mood Suicide attempt via cutting Cluster B traits Nicotine dependence Cannabis use disorder Plan: -Patient continues to meet criteria for inpatient psychiatric admission for symptom stabilization and safety. Patient has signed adult voluntary form and medication consent and was placed in patient's chart. -Medications: Continue Zyprexa Zydis 5 mg at bedtime for mood stabilization, melatonin 10 mg at bedtime for insomnia -When necessary Ativan and Haldol for agitation/aggression. -Labs: A1c, TSH, D-dimer all WNL -NRT - nicotine patch -SW on board for discharge planning. Encouraged the patient to participate in milieu. Anticipate discharge on Wednesday, intermediate versus home with twin
[2024-10-09 08:36] VITALS: BP 133/93; PULSE 109; TEMP 98.1
--- NOTE | 2024-10-09 11:24 | P.DS ---
Providers Date of admission: 10/04/24 23:10 Expected date of discharge: 10/09/24 Attending physician: Doris James MD Consults: 10/04/24 20:58 Consult Physician Routine Consulting Provider: Majo Monte Consult Reason/Comments: H&P, wound care needs Do you want consulting provider notified?: Yes Primary care physician: Physician Nonstaff - Discharge Diagnosis(es) (1) Adjustment disorder with mixed anxiety and depressed mood Current Visit: Yes Status: Acute Priority: High (2) Suicide attempt Current Visit: Yes Status: Acute Priority: High (3) Cluster B personality disorder Current Visit: Yes Status: Acute Priority: High (4) Nicotine dependence Current Visit: Yes Status: Acute Priority: Low (5) Cannabis use disorder Current Visit: Yes Status: Acute Priority: Medium Hospital Course: Admission HPI: Admission note was completed by marketing underwriter "Patient presented to the hospital with suicide attempt. Patient was seen by marketing underwriter on the consult service with the note as follows, " The patient presented to the hospital with suicide attempt via cutting. Vascular surgeon was consulted and patient is status post repair of tendon. Patient seen and evaluated in his room. Patient expresses that him and his twin brother are both in a relationship with the same girl whom he has been dating for 2 months however he became upset when he saw that her ex was texting her phone. He states also taking 4 shots of alcohol at that time and how he was attempting to reach out to his brother for support however his brother closed the door on him. He states he then picked up a Frisian knife that he did not feel was supersharp to cut himself and that his brother himself contacted the ambulance. Patient is still upset with both his girlfriend and twin brother further-checking on him while he is in the hospital. He is happy that he did not complete suicide however he is now dealing with eviction from his apartment due to noise complaints. He reports sleep difficulties, anhedonia, denying any appetite or energy changes, chronic concentration difficulties. He reports anxiety related to the current situation. At this time patient denies any suicidal or homicidal ideations, intent or plan. Patient denies any auditory, visual hallucinations and denies any paranoia or delusions. Patients admits to using nicotine and cannabis daily." Patient seen and evaluated on the unit and was agreeable with speaking to marketing underwriter in office. He states he has still been unable to reach his twin brother however states "there is no beef between me and him". He continues to struggle with his girlfriend cheating on him with her ex, he was encouraged to learn from the situation and focus on himself to which he agreed. Patient does admit to difficulties controlling his anger, admitted to damage on his rental property that ultimately led him to be evicted in 5-6 days. He states now that he is in treatment and is willing to follow-up with [facility] to begin therapy, he is hopeful his landlord is more understanding and is able to give him a second chance. Patient was fixated on his ex-girlfriend's infidelity, stating that she blocked him on Snapchat which hurt him. He continues to reiterate how he cut himself so that he can get his brother's attention, not knowing that the knife was sharp and would cut his artery. He states his hand and arm feels fine and he is able to write and play video games. Patient denies any suicidal or homicidal ideations intent or plan. At this time patient denies any auditory or visual hallucinations. Patient denies any flight of ideas racing thoughts and increased in goal directed behavior. Patient admits to using nicotine and cannabis daily." Hospital course: Upon admission to the unit patient was directable and agreeable to commence treatment and signed adult voluntary form.. Patient got along well with other patients on the unit and followed unit protocol. Patient was compliant with the medications and denied any side effects throughout hospital course. Patient was started on Zyprexa Zydis 5 mg at bedtime for mood stabilization, melatonin 10 mg at bedtime for insomnia. Patient spoke of his stressors and engaged in therapy both group and individual. Patient was also seen by medical team for history and physical exam. He was started on bacitracin antibiotic and oral Keflex for 5-day course given his arm wound. Throughout the course of the hospitalization patient gradually improved with regards to mood, anxiety, sleep and returned back to their baseline level of functioning. On the day of discharge patient denied any suicidal or homicidal ideations intent or plan denied any auditory or visual hallucinations. The patient denied any access to guns or weapons. Patient denied any paranoia and did not endorse any delusions. Patient does not have a significant history of substance abuse and was counseled on abstaining from all substances including alcohol and marijuana. Patient was also counseled on the medications and need for regular compliance and was encouraged to follow- up with their outpatient appointment for mental health and also for primary care. Patient is currently being evicted however will return there temporarily and was given a list of shelters in the area to follow-up with. Mental status exam: General Appearance: Patient appears to be stated age is alert, pleasant, and cooperative. Patient is in no acute distress and has improved hygiene and grooming Behavior: Patient is calmly seated without any agitated behavior. Speech: Patient's speech is fluent and nonpressured. Mood/Affect: Patient reports their mood is "good", affect is congruent and euthymic. Suicidality/Homicidality: Patient denies having any suicidal or homicidal ideation intent or plan. Perceptions: Patient denies any auditory or visual hallucinations. Though content/process: There is no evidence of any delusional thought content and thought process is linear and goal-directed. Memory and concentration: AOX3, grossly intact for the purposes of this session. Can spell "WORLD" backwards correctly. Judgment and insight: Improved Impression: Adjustment disorder with depressed and anxious mood Suicide attempt via cutting Cluster B traits Nicotine dependence Cannabis use disorder Plan: -Continue with discharge today as patient has improved and stabilized psychiatrically and is not currently an imminent threat to themself and/or others. Patient will remain at chronically elevated risk for harm to self and/ or others due to their impulsivity and substance abuse. -Continue medications: Zyprexa Zydis 5 mg at bedtime, melatonin 10 mg at bedtime -Patient was counseled on the need for medication compliance and appropriate follow-up at mental health and also primary care for medical issues. Patient verbalized understanding and agreed. -Social work to help coordinate patients discharge today. also to ensure safe home environment that guns/weapons are either removed from the home or locked away. Social work also to arrange for patients follow up appointments with [facility] for psychiatric care along with follow up with primary care provider. -Patient counseled on abstaining from recreational drugs and marijuana and alcohol. Was informed/educated on the adverse effects on their physical and mental health. Patient verbally agreed and understood. -Patient was instructed to return to the hospital or seek immediate medical care if their psychiatric or medical symptoms do worsen or reoccur. Allergies Allergy/AdvReac Type Severity Reaction Status Date / Time No Known Allergies Allergy Verified 10/02/24 18:33 Vital Signs Temp 98.1 F 10/09/24 08:35 Pulse 109 H 10/09/24 08:35 Resp 16 10/08/24 08:54 BP 133/93 10/09/24 08:35 Pulse Ox 99 10/09/24 08:35 FiO2 Patient Condition at Discharge: Stable Plan - Discharge Summary Discharge Rx Participant: No New Discharge Prescriptions: New Bacitracin Zinc Oint 1 applic TOPICAL DAILY #28 gm Nicotine 14Mg/24Hr Patch [Habitrol] 1 patch TRANSDERM DAILY patch Melatonin 10 mg PO HS 30 Days #60 tab Cephalexin [Keflex] 500 mg PO TID 1 Days #2 cap OLANZapine ODT [ZyPREXA Zydis] 5 mg PO HS 30 Days #30 tab Discontinued Multivitamins, Thera [Multivitamin (formulary)] 1 each PO DAILY@1200 tab Pantoprazole [Protonix] 40 mg PO AC-BRKFST tab OLANZapine [ZyPREXA] 5 mg PO BID PRN tab PRN Reason: Agitation Folic Acid 1 mg PO DAILY@1200 tab Acetaminophen Tab [Tylenol] 500 mg PO Q6HR PRN tab PRN Reason: Fever and/ or Mild Pain Thiamine [Vitamin B-1] 100 mg PO BID-W/MEALS tab Discharge Medication List Bacitracin Zinc Oint 1 applic TOPICAL DAILY #28 gm 10/09/24 [Rx] Cephalexin [Keflex] 500 mg PO TID 1 Days #2 cap 10/09/24 [Rx] Melatonin 10 mg PO HS 30 Days #60 tab 10/09/24 [Rx] Nicotine 14Mg/24Hr Patch [Habitrol] 1 patch TRANSDERM DAILY patch 10/09/24 [Rx] OLANZapine ODT [ZyPREXA Zydis] 5 mg PO HS 30 Days #30 tab 10/09/24 [Rx] Activity/Diet/Wound Care/Special Instructions: Avoid the use of street drugs and alcohol. Take all medications as prescribed. When you are in need of refills on your medications, please contact your medical provider and/or outpatient psychiatrist/provider to have this done. Please go to your scheduled outpatient appointment for aftercare treatment. If symptoms return or become worse, call the crisis line at and/or go to the nearest emergency room for evaluation. National Suicide Hotline [address] [facility] confidentiality statement: "The information contained in this communication, including attachments, is confidential, may be privileged, and is intended only for the use of the named recipient(s). Unauthorized use, discl osure, forwarding or copying is strictly prohibited and may be unlawful. If you have received this communication in error, please notify me IMMEDIATELY at the phone number or pager listed above. Discharge Disposition: HOME SELF-CARE
== END 2024-10-09 14:01 | disposition home or self-care (01) | DRG 755 ==
LOC: 3MHU 23:10
PROVIDERS: ADMIT Psychiatry & Neurology Psychiatry; ATTEND Psychiatry & Neurology Psychiatry
DX: F43.23 Adjustment disorder with mixed anxiety and depressed mood (principal); L03.312 Cellulitis of back [any part except buttock and flank]; Z59.00 Homelessness unspecified; F12.10 Cannabis abuse, uncomplicated; F10.129 Alcohol abuse with intoxication, unspecified; L03.113 Cellulitis of right upper limb; F60.89 Other specific personality disorders; F90.9 Attention-deficit hyperactivity disorder, unspecified type; S31.000A Unspecified open wound of lower back and pelvis without penetration into retroperitoneum, initial encounter; X78.1XXD Intentional self-harm by knife, subsequent encounter; S56.8 Injury of other muscles, fascia and tendons at forearm level; G47.00 Insomnia, unspecified; F17.290 Nicotine dependence, other tobacco product, uncomplicated; Z56.0 Unemployment, unspecified; Z79.899 Other long term (current) drug therapy; Z71.51 Drug abuse counseling and surveillance of drug abuser
CPT/HCPCS: 81003; 83036; 84443; 85379